=== PATIENT | female | born 1960 | race Caucasian/White ===

== ENCOUNTER → 2019-01-02 15:26 | Outpatient (CLI) | payer BC, SELFPAY ==
--- NOTE | 2019-01-02 | CA_ITS ---
APPROVED REPORT Left Lower Extremity Venous Study for DVT. 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 Color flow duplex demonstrates no evidence of SVT of the Small and Great Saphenous Vein. 6.0cm hypoechoic area seen left calf muscle, ? hematoma. Conclusion Color flow duplex demonstrates no evidence of DVT of the following left lower extremity Veins:. Color flow duplex demonstrates no evidence of SVT of the Small and Great Saphenous Vein. 6.0cm hypoechoic area seen left calf muscle, ? hematoma. Consider MRI for further evaluation Critical Notification Date: 01/02/2019 Time: 16:05 Physician Name: Dr Mullins Electronically signed by : Mark Lopez MD 01/02/2019 19:39:25
== END ==
PROVIDERS: PCP Family Medicine; Visit Provider Family Medicine
DX: M79.605 Pain in left leg (principal)
CPT/HCPCS: 93971

== ENCOUNTER → 2020-02-18 09:29 | Outpatient (CLI) | payer BC, SELFPAY ==
[2020-02-18 10:35] LABS: Basophils % 0.8 % (0.1-2.0); Eosinophils # 0.2 K/mm3 (0.0-0.4); Eosinophils % 3.6 % (0.1-12.0); Hematocrit 32.3 % (37.0-47.0); Hemoglobin 9.8 g/dL (12.2-16.2); Lymphocytes # 2.2 K/mm3 (0.7-4.5); Lymphocytes % 45.3 % (10-50); Mean Corpuscular HGB Conc 30.4 g/dL (31.8-35.4); Mean Corpuscular Hemoglobin 23.5 pg (27.0-31.2); Mean Corpuscular Volume 77.5 fl (81-99); Mean Platelet Volume 10.4 fl (7.4-10.4); Monocytes # 0.4 K/mm3 (0.1-1.0); Monocytes % 8.7 % (1.7-9.3); Neutrophils % 41.7 % (37.0-80.0); Platelet Count 223 K/mm3 (142-424); Red Blood Count 4.17 M/mm3 (4.20-5.40); Red Cell Distribution Width 17.3 % (11.5-17.5); White Blood Count 4.8 K/mm3 (4.8-10.8)
== END ==
PROVIDERS: Visit Provider Family Medicine
DX: D64.9 Anemia, unspecified (principal)
CPT/HCPCS: 36415; 85025

== ENCOUNTER 2020-11-27 11:46 | Outpatient (CLI) | payer BC, SELFPAY ==
[2020-11-27] VITALS (8 sets, daily range): BP systolic 105–119; BP diastolic 56–66; PULSE 61–71; RESP 16–20; TEMP 36.9–37.2; O2SAT 96–99
== END 2020-11-27 14:44 | disposition home or self-care (01) ==
PROVIDERS: PCP Family Medicine; Visit Provider Emergency Medicine
DX: U07.1 COVID-19 (principal)
CPT/HCPCS: 96365

== ENCOUNTER 2021-10-23 01:37 | Emergency (ER) | payer BC, SELFPAY ==
[2021-10-23 01:39] VITALS: BP 143/84; PULSE 102; RESP 16; TEMP 36.9; O2SAT 99; BMI 32.5
--- NOTE | 2021-10-23 01:52 | CT_ITS ---
PROCEDURE INFORMATION: Exam: CT Left Lower Extremity Without Contrast, Knee Exam date and time: 10/23/2021 1:53 AM Age: 60 years old Clinical indication: Swelling or effusion of joint; Prior surgery; Surgery date: 6+ months; Surgery type: Total knee replacment 2019; Additional info: Pain and unable to staighten sudden onset tonight PT denies any injury tonight TECHNIQUE: Imaging protocol: CT of the Left lower extremity without contrast was performed. Exam focused on the knee. Radiation optimization: All CT scans at this facility use at least one of these dose optimization techniques: automated exposure control; mA and/or kV adjustment per patient size (includes targeted exams where dose is matched to clinical indication); or iterative reconstruction. COMPARISON: No relevant prior studies available. FINDINGS: Limitations: Streak artifact - moderate. Bones/joints: No displaced fracture. Total knee arthroplasty. No definite hardware loosening. No dislocation. Large joint effusion. Soft tissues: Mild stranding within subcutaneous tissues. Vasculature: Atherosclerotic disease of visualized arteries. IMPRESSION: No displaced fracture. Joint effusion. If pain persists, consider MRI to evaluate for occult fracture/internal derangement.
--- NOTE | 2021-10-23 01:54 | PC.NURSE ---
Pt gone to RAD
--- NOTE | 2021-10-23 01:55 | PC.NURSE ---
PT AND FAMILY MADE AWARE OF EXPECTED WAIT TIMES. WARM BLANKET AND PAIN MEDICATIONS GIVEN FOR COMFORT. FAMILY AT BEDSIDE.
--- NOTE | 2021-10-23 02:05 | PC.NURSE ---
pt back from RAD
--- NOTE | 2021-10-23 02:36 | PC.NURSE ---
WARM BLANKET PROVIDED FOR COMFORT. PT REPORTS THAT PAIN HAS IMPROVED. PT UPDATED AND MADE AWARE THAT RADIOLOGY SCANS HAVE NOT BEEN READ. FAMILY REMAINS AT BEDSIDE.
--- NOTE | 2021-10-23 02:53 | HMH.EDLOEX ---
ED Disposition Clinical Impression: Knee effusion, left, Prolonged INR Left knee pain Qualifiers: Chronicity: acute Qualified Code(s): M25.562 - Pain in left knee Disposition: Home, Self-Care Condition on Discharge: Good Instructions: DI for Knee Effusion Additional Instructions: will adjust coumadin and have pt call ortho and pcp for follow up Referrals: Ivanna Mullins MD [Primary Care Provider] - - Critical Care Critical Care Time: No Attestation: On 10/23/21, the high probability of a clinically significant, sudden or life threatening deterioration of the following system(s) required my full and direct attention, intervention and personal management. The time I documented below is in addition to time spent performing reported procedures but includes the following listed in this critical care notation. Medical Decision Making - Medical Records Medical records reviewed: Yes: I reviewed the patient's medical records. - Rony Inquiry Pt receiving controlled substance: No Vital Signs: 10/23/21 01:39 Temperature 98.4 F Temperature Source Oral Pulse Rate [Right] 102 H Respiratory Rate 16 Blood Pressure [Right Arm] 143/84 H Blood Pressure Mean [Right Arm] 103 02 Sat by Pulse Oximetry 99 - Lab Data Lab results reviewed: Yes: I reviewed the patient's lab results. Lab Results 10/23/21 03:11: PT 40.8 H, INR 4.00 H 10/23/21 03:11: WBC 6.8, RBC 3.84 L, Hgb 8.7 L, Hct 29.3 L, MCV 76.4 L, MCH 22.7 L, MCHC 29.7 L, RDW 19.4 H, Plt Count 437 H, MPV 9.1, Neut % (Auto) 45.7, Lymph % (Auto) 43.1, [place] % (Auto) 7.1, Eos % (Auto) 2.6, Baso % (Auto) 1.6, Neut # (Auto) 3.1, Lymph # (Auto) 2.9, [place] # (Auto) 0.5, Eos # (Auto) 0.2, Baso # (Auto) 0.1 10/23/21 03:11: Sodium 135 L, Potassium 4.3, Chloride 106, Carbon Dioxide 25, Anion Gap 8.3, BUN 11, Creatinine 0.70, Estimated Creat Clear 83, Estimated GFR 85, Est GFR ( Amer) 103, Glucose 108 H, Calcium 8.7 Result diagrams: 10/23/21 03:11 10/23/21 03:11 Orders (Tests/Meds): ED MEDICATIONS Discontinued Medications Generic Name Dose Route Start Last Admin Trade Name Amy PRN Reason Stop Dose Admin Oxycodone/Acetaminophen 1 each 10/23/21 01:53 10/23/21 01:54 Oxycodone 5mg W/Apap 325mg Tablet PO 10/23/21 01:54 1 each ONCE ONE Administration - CT Data CT Scan: Other Time Received: 03:[address] Reviewed: Yes: I have viewed the radiologist's interpretation Preliminary Findings: Abnormal (effusion and warmth with dec rom ) - Physician Consults Physician Consulted: gayle Reason -: Pt condition Medical Decision Narrative: atraumatic lt knee pain and dec rom with effusion - with prolonged inr - possible spont bleed Lower Extremity Injury HPI - General Chief Complaint: Extremity Injury, Lower Stated Complaint: left knee replacement ,knee not moving Time Seen by Provider: 10/23/21 02:00 Mode of Arrival: Wheelchair Source of Information: Patient, Medical Record Limitations: No Limitations Description of Symptoms (Recalled from ER Triage Doc. by RN): pt states sat up down in chair for 10 mins then when to get out of chair and was unable to straighten lt knee. pt c/o lt knee pain,unable to bear weight, straighten,swelling noted. pt denies any trauma. - History of Present Illness HPI Narrative: hx of knee replacement and was getting out of chair and was unable to fully extend knee and has swelling - pt with pain at rest - no other c/o - pt on coumadin - chronic for dvt MD complaint: knee injury Onset (ago): hour(s) Injury: Left: knee Type of Injury: unknown Place: home Severity: moderate Associated symptoms: swelling, unable to bear weight Other symptoms: none - Related Data Home Medications Medication Instructions Recorded Confirmed Amitriptyline HCl [Elavil 25mg 25 mg PO DAILY 12/23/17 12/23/17 tablet] Diclofenac Sodium [Voltaren 100gm 100 gm TP DAILY 12/23/17 12/23/17 Topical Gel] Metoprolol Tartrate [Lo
[2021-10-23 03:24] LABS: Basophils # 0.1 K/mm3 (0-0.2); Basophils % 1.6 % (0.1-2.0); Eosinophils # 0.2 K/mm3 (0.0-0.4); Eosinophils % 2.6 % (0.1-12.0); Hemoglobin 8.7 g/dL (12.2-16.2); Lymphocytes # 2.9 K/mm3 (0.7-4.5); Lymphocytes % 43.1 % (10-50); Mean Corpuscular HGB Conc 29.7 g/dL (31.8-35.4); Mean Corpuscular Hemoglobin 22.7 pg (27.0-31.2); Mean Corpuscular Volume 76.4 fl (81-99); Mean Platelet Volume 9.1 fl (7.4-10.4); Monocytes # 0.5 K/mm3 (0.1-1.0); Monocytes % 7.1 % (1.7-9.3); Neutrophils # 3.1 K/mm3 (1.8-7.8); Neutrophils % 45.7 % (37.0-80.0); Platelet Count 437 K/mm3 (142-424); Red Blood Count 3.84 M/mm3 (4.20-5.40); Red Cell Distribution Width 19.4 % (11.5-17.5); White Blood Count 6.8 K/mm3 (4.8-10.8)
[2021-10-23 03:25] LABS: Chloride 106 mmol/L (98-107); Potassium 4.3 mmoL/L (3.5-5.1); Sodium 135 mmol/L (136-145)
[2021-10-23 03:28] LABS: Anion Gap 8.3 mEq/L (5-15); Blood Urea Nitrogen 11 mg/dl (7-17); Carbon Dioxide 25 mmol/L (22.0-30.0); Creatinine Clearance Estimated 83 mL/min (50-200); Estimated Glomerular Filt Rate 85 ml/min (>60); GFR (African American) 103 ML/MIN (>60); Glucose 108 mg/dl (74-100)
[2021-10-23 03:29] LABS: Calcium 8.7 mg/dl (8.4-10.2)
[2021-10-23 03:30] LABS: Prothrombin Time 40.8 seconds (10.1-12.5)
[2021-10-23 03:36] LABS: Hematocrit 29.3 % (37.0-47.0)
--- NOTE | 2021-10-23 03:47 | PC.NURSE ---
Waiting for a call back from Dr. Romero at [facility]
--- NOTE | 2021-10-23 03:48 | PC.NURSE ---
speaking with Dr. Romero
[2021-10-23 03:54] VITALS: BP 134/79; PULSE 78; RESP 16; TEMP 36.9; O2SAT 95
== END 2021-10-23 03:58 | disposition home or self-care (01) ==
PROVIDERS: Emergency Provider Emergency Medicine; PCP Family Medicine
DX: M25.462 Effusion, left knee (principal); M25.562 Pain in left knee; Z96.659 Presence of unspecified artificial knee joint; Z79.01 Long term (current) use of anticoagulants
CPT/HCPCS: 73700; 80048; 85025; 85610; 99284

== ENCOUNTER → 2022-02-18 16:00 | Outpatient (CLI) | payer BC, SELFPAY ==
[2022-02-18 17:53] LABS: Anion Gap 11.4 mEq/L (5-15); Blood Urea Nitrogen 12 mg/dl (7-17); Calcium 8.7 mg/dl (8.4-10.2); Carbon Dioxide 29 mmol/L (22.0-30.0); Chloride 101 mmol/L (98-107); Estimated Glomerular Filt Rate 85 ml/min (>60); GFR (African American) 103 ML/MIN (>60); Glucose 103 mg/dl (74-100); Potassium 4.4 mmoL/L (3.5-5.1); Sodium 137 mmol/L (136-145)
== END ==
PROVIDERS: PCP Family Medicine; Visit Provider Family Medicine
DX: M54.2 Cervicalgia (principal)
CPT/HCPCS: 36415; 80048

== ENCOUNTER → 2022-02-22 12:46 | Outpatient (CLI) | payer BC, SELFPAY ==
--- NOTE | 2022-02-22 12:53 | CT_ITS ---
FINAL REPORT TECHNIQUE: Axial images through the cervical spine was performed with and without contrast. Sagittal coronal reformatted images were obtained and reviewed. This study was performed with techniques to keep radiation doses as low as reasonably achievable (ALARA). Individualized dose reduction techniques using automated exposure control or adjustment of mA and/or kV according to the patient's size were employed. CLINICAL HISTORY: CERVICAL SPINE PAIN, numbness to the right thumb and pinky fingers , right side neck pain FINDINGS: No fracture is identified. There are moderate degenerative changes. There is no abnormal contrast enhancement on the postcontrast images. C2-3: Uncovertebral osteophytes are present. There is no significant canal stenosis or neural foraminal narrowing. C3-4: Uncovertebral osteophytes are present with mild right neural foraminal narrowing. C4-5: An annular bulge and uncovertebral osteophytes are present. There is moderate right neural foraminal narrowing. C5-6: Disc osteophyte complex is present. There is a central and left foraminal disc protrusion which indents the thecal sac. There is probable left C6 nerve root impingement. There is mild right and severe left neural foraminal narrowing. There is mild central canal stenosis with an AP diameter of the thecal sac of 9 mm. C6-7: Disc osteophyte complex is present with moderate right and severe left neural foraminal narrowing. There is mild central canal stenosis with an AP diameter of the thecal sac of 8 mm. C7-T1: Uncovertebral osteophytes are present moderate bilateral neural foraminal narrowing. IMPRESSION: Multilevel degenerative disc disease and spondylosis with mild central canal stenosis at C5-6 and C6-7. Central and left foraminal disc protrusion at C5-6 results in severe left neural foraminal narrowing and probable left C6 nerve root impingement. Reviewed, Interpreted and Dictated by Jayesh Steiner III, MD Transcribed by Ashley Man Authenticated and . [facility]
== END ==
PROVIDERS: PCP Family Medicine; Visit Provider Family Medicine
DX: M54.2 Cervicalgia (principal)
CPT/HCPCS: 72127; Q9967

== ENCOUNTER 2023-06-20 15:00 | Outpatient (RCR) | payer BC, SELFPAY | END 2023-06-20 16:00 | disposition home or self-care (01) | LOC: PT 15:00 | PROVIDERS: PCP Family Medicine; Visit Provider Family Medicine | DX: L08.9 Local infection of the skin and subcutaneous tissue, unspecified (principal); S31.104A Unspecified open wound of abdominal wall, left lower quadrant without penetration into peritoneal cavity, initial encounter | CPT/HCPCS: 97163; 97164; 97597 ==

== ENCOUNTER 2023-07-09 00:05 | Emergency (ER) | payer BC, SELFPAY ==
[2023-07-09] VITALS (7 sets, daily range): BP systolic 155–177; BP diastolic 56–84; PULSE 73–84; RESP 16–19; TEMP 36.7–36.8; O2SAT 96–99; BMI 35.6
--- NOTE | 2023-07-09 00:14 | XR_ITS ---
PROCEDURE INFORMATION: Exam: XR Chest Exam date and time: 07/09/2023 12:35 AM Age: 62 years old Clinical indication: Shortness of breath; Additional info: Shortness of air TECHNIQUE: Imaging protocol: Radiologic exam of the chest. Views: 1 view. COMPARISON: CT CERVICAL SPINE WO/W CON 02/22/2022 1:15 PM FINDINGS: Lungs: Unremarkable. No consolidation. Pleural spaces: Unremarkable. No pleural effusion. No pneumothorax. Heart/Mediastinum: Unremarkable. No cardiomegaly. Bones/joints: Unremarkable. IMPRESSION: No acute findings.
[2023-07-09 00:26] LABS: Basophils # 0.1 K/mm3 (0-0.2); Basophils % 0.9 % (0.1-2.0); Eosinophils # 0.1 K/mm3 (0.0-0.4); Hematocrit 38.7 % (37.0-47.0); Lymphocytes # 2.4 K/mm3 (0.7-4.5); Lymphocytes % 36.9 % (10-50); Mean Corpuscular HGB Conc 31.1 g/dL (31.8-35.4); Mean Corpuscular Hemoglobin 31.7 pg (27.0-31.2); Mean Platelet Volume 9.4 fl (7.4-10.4); Monocytes # 0.3 K/mm3 (0.1-1.0); Monocytes % 5.1 % (1.7-9.3); Neutrophils # 3.6 K/mm3 (1.8-7.8); Neutrophils % 55.1 % (37.0-80.0); Platelet Count 259 K/mm3 (142-424); Red Cell Distribution Width 14.7 % (11.5-17.5); White Blood Count 6.5 K/mm3 (4.8-10.8)
[2023-07-09 00:27] LABS: Chloride 104 mmol/L (98-107); Sodium 138 mmol/L (136-145)
[2023-07-09 00:29] LABS: Blood Urea Nitrogen 16 mg/dl (7-17); Creatinine Clearance Estimated 88 mL/min (50-200); Estimated Glomerular Filt Rate 101 ml/min (>60); GFR (African American) 122 ML/MIN (>60)
[2023-07-09 00:30] LABS: Alanine Aminotransferase 55 U/L (12-78); Albumin Level 3.8 g/dl (3.5-5.0); Albumin/Globulin Ratio 1.2 (1.1-1.8); Alkaline Phosphatase 108 U/L (38-126); Aspartate Amino Transferase 52 U/L (14-36); Bilirubin,Total 0.3 mg/dl (0.2-1.3); Calcium 9.1 mg/dl (8.4-10.2); Carbon Dioxide 32 mmol/L (22.0-30.0); Globulin 3.2 g/dL (1.3-3.2); Glucose 105 mg/dl (74-100)
[2023-07-09 00:31] LABS: INR 3.13 (0.9-1.1); Prothrombin Time 31.4 seconds (10.1-12.5)
--- NOTE | 2023-07-09 00:37 | CT_ITS ---
PROCEDURE INFORMATION: Exam: CT Thoracic Spine Without Contrast Exam date and time: 07/09/2023 1:03 AM Age: 62 years old Clinical indication: Injury or trauma; Fall; Blunt trauma (contusions or hematomas); Additional info: Fall, landed directly on buttocks, t/l/s spine breezy TECHNIQUE: Imaging protocol: Computed tomography of the thoracic spine without contrast. Radiation optimization: All CT scans at this facility use at least one of these dose optimization techniques: automated exposure control; mA and/or kV adjustment per patient size (includes targeted exams where dose is matched to clinical indication); or iterative reconstruction. COMPARISON: CT CERVICAL SPINE WO CON 07/09/2023 12:59 AM FINDINGS: Bones/joints: There is no acute fracture or dislocation. Multilevel degenerative changes noted throughout the thoracic spine. Mild kyphosis of the midthoracic spine is suggested. Overall vertebral body heights are maintained. Soft tissues: Unremarkable. Vasculature: Aortic atherosclerosis noted. IMPRESSION: No acute osseous abnormality
--- NOTE | 2023-07-09 00:37 | CT_ITS ---
PROCEDURE INFORMATION: Exam: CT Cervical Spine Without Contrast Exam date and time: 07/09/2023 12:59 AM Age: 62 years old Clinical indication: Injury or trauma; Fall; Blunt trauma; Additional info: Fall, struck head, on warfarin TECHNIQUE: Imaging protocol: Computed tomography of the cervical spine without contrast. Radiation optimization: All CT scans at this facility use at least one of these dose optimization techniques: automated exposure control; mA and/or kV adjustment per patient size (includes targeted exams where dose is matched to clinical indication); or iterative reconstruction. COMPARISON: CT CERVICAL SPINE WO/W CON 02/22/2022 1:15 PM FINDINGS: Bones/joints: No cervical fracture. Facets are normally aligned. Advanced multilevel degenerative facet arthropathy. Marked degenerative disc disease at C5-C6 and C6-C7. Mild degenerative anterolisthesis of C5 on C6 measuring approximately 2 mm. No significant central canal stenosis. Lungs: No acute findings in the visualized lung apices. Soft tissues: No acute findings. IMPRESSION: 1. No acute findings in the cervical spine. 2. Multilevel advanced degenerative changes as described.
--- NOTE | 2023-07-09 00:37 | CT_ITS ---
PROCEDURE INFORMATION: Exam: CT Pelvis Without Contrast; Skeletal Exam date and time: 07/09/2023 1:08 AM Age: 62 years old Clinical indication: Injury or trauma; Fall; Blunt trauma (contusions or hematomas); Does not apply; Sacrum and coccyx; Additional info: Fall, landed directly on buttocks, t/l/s spine breezy TECHNIQUE: Imaging protocol: Computed tomography of the pelvis without contrast. Exam focused on the skeleton. Radiation optimization: All CT scans at this facility use at least one of these dose optimization techniques: automated exposure control; mA and/or kV adjustment per patient size (includes targeted exams where dose is matched to clinical indication); or iterative reconstruction. COMPARISON: CT LUMBAR SPINE WO CON 07/09/2023 1:05 AM FINDINGS: Intraperitoneal space: Pelvic soft tissues demonstrate no significant free fluid. Moderate fecal material noted. Urinary bladder is unremarkable. Reproductive pelvic organs not visualized. Correlate clinically for history of hysterectomy. Bones/joints: No acute fracture. Bilateral sacroiliac joints are symmetric and intact. Bilateral hip joints are intact. Pubic symphysis is grossly unremarkable. Visualized sacrum and coccyx are do not demonstrate any acute bony injury. Please see patient's CT lumbar spine report for additional information. Soft tissues: Fat containing right inguinal hernia noted. IMPRESSION: 1. Intact bony pelvis with no acute fracture 2. Fat containing right inguinal hernia noted 3. Additional nonacute findings, noted above
--- NOTE | 2023-07-09 00:37 | CT_ITS ---
PROCEDURE INFORMATION: Exam: CT Lumbar Spine Without Contrast Exam date and time: 07/09/2023 1:05 AM Age: 62 years old Clinical indication: Injury or trauma; Fall; Blunt trauma (contusions or hematomas); Prior surgery; Surgery date: 6+ months; Surgery type: Fusion; Additional info: Fall, landed directly on buttocks, t/l/s spine breezy TECHNIQUE: Imaging protocol: Computed tomography of the lumbar spine without contrast. Radiation optimization: All CT scans at this facility use at least one of these dose optimization techniques: automated exposure control; mA and/or kV adjustment per patient size (includes targeted exams where dose is matched to clinical indication); or iterative reconstruction. COMPARISON: CT THORACIC SPINE WO CON 07/09/2023 1:03 AM FINDINGS: Bones/joints: Mild posterior subluxation of the L1 on L2 noted. Degenerative disc disease noted all levels. Bilateral neural foraminal narrowing noted at all levels of the lumbar spine. Central canal stenosis noted at L3-L4. . Postsurgical changes noted from fusion hardware placement of L4 and L5 with bilateral pedicle screws and vertical rods. Disc spacer noted at L4-L5. No acute fracture. Multilevel facet arthropathy noted. Vasculature: Note made of IVC filter in place. Atherosclerosis noted in the aorta. Soft tissues: Postsurgical changes noted.. IMPRESSION: 1. No acute fracture 2. Mild posterior subluxation of L1 on L2. Most likely degenerative. 3. Postsurgical changes from posterior fusion at L4 and L5. 4. Multilevel degenerative disc disease with multiple levels of neural foraminal narrowing. Central canal stenosis at L3-L4
--- NOTE | 2023-07-09 00:37 | CT_ITS ---
PROCEDURE INFORMATION: Exam: CT Head Without Contrast Exam date and time: 07/09/2023 1:00 AM Age: 62 years old Clinical indication: Injury or trauma; Fall; Blunt trauma (contusions or hematomas); Additional info: Fall, struck head, on warfarin TECHNIQUE: Imaging protocol: Computed tomography of the head without contrast. Radiation optimization: All CT scans at this facility use at least one of these dose optimization techniques: automated exposure control; mA and/or kV adjustment per patient size (includes targeted exams where dose is matched to clinical indication); or iterative reconstruction. COMPARISON: CT CERVICAL SPINE WO CON 07/09/2023 12:59 AM FINDINGS: Brain: Age related atrophic changes in the brain. No mass effect or midline shift. No intracranial hemorrhage. No intracranial edema. No evidence of acute territorial ischemia. No significant white matter disease. Cerebral ventricles: No ventriculomegaly. Paranasal sinuses: No acute findings. No fluid levels. Mastoid air cells: No significant mastoid effusion. Bones/joints: No acute fracture. Soft tissues: No acute findings. IMPRESSION: No acute intracranial findings.
[2023-07-09 00:40] LABS: NT Pro Brain Natriuretic Pep. 279 pg/mL (0-125)
[2023-07-09 00:43] LABS: Troponin I < 0.01 ng/ml (0.00-0.034)
--- NOTE | 2023-07-09 00:49 | ECG_ITS ---
APPROVED REPORT Exam: Resting ECG HR:75 bpm ECG Measurements Heart Rate 75 AXES WV 160 P 54 QRSd 95 QRS 32 QT 376 T 30 QTc 405 Conclusion SINUS RHYTHM Nonspecific T wave inversion lead III Electronically signed by : PAM NICOLE, 07/09/2023 02:58:22
--- NOTE | 2023-07-09 01:25 | PC.NURSE ---
PT UP TO BR VIA TWO STAFF MEMBERS. VOIDED EASILY. BLADDER SCAN 5ML PER JOSEFINA HURD
[2023-07-09 01:27] LABS: Microscopic, Urine URINE MICROSCOPIC (MICROSCOPIC)
[2023-07-09 01:34] LABS: Appearance,Urine CLEAR (Clear); Bilirubin,Urine Negative (Negative); Blood, Urine Negative (Negative); Color,Urine YELLOW (Yellow); Glucose,Urine (UA) Negative (Negative); Ketones,Urine Negative (Negative); Leukocyte Esterase,Urine 1+ (Negative); Nitrate,Urine Negative (Negative); Protein,Urine Negative (Negative); Specific Gravity, Urine 1.015 (1.005-1.030); Urobilinogen,Urine 0.2 EU/dl (0.2)
[2023-07-09 01:42] LABS: Bacteria,Urine Trace /lpf; Squamous Epithelial Cell,Urine Occasional #/hpf (0-5)
--- NOTE | 2023-07-09 01:58 | [facility].EDCP ---
Discharge Plan Disposition Patient Disposition: Home, Self-Care Prescriptions Prescriptions: New prednisone 20 mg tablet 40 mg PO DAILY 5 Days Qty: 10 0RF hydrochlorothiazide 25 mg tablet 25 mg PO DAILY Qty: 30 1RF nitrofurantoin monohyd/m-cryst [Macrobid] 100 mg capsule 100 mg PO BID 5 Days Qty: 10 0RF Rx Instructions: must administer with a meal/food No Action folic acid 1 mg tablet 1 mg PO DAILY gabapentin 300 mg capsule 300 mg PO Q8H meloxicam 7.5 mg tablet 7.5 mg PO DAILY duloxetine 60 mg capsule,delayed release(DR/EC) 60 mg PO BID cyclobenzaprine 10 mg tablet 10 mg PO HS leflunomide 20 mg tablet 20 mg PO DAILY vitamin [id number] B1 1,000-100 mg/mL solution See Rx Instructions IM .COMPLEX Rx Instructions: intramuscularly 2X A MONTH; Prolia 60 mg/mL syringe 60 mg SQ [id number] cholecalciferol (vitamin D3) 125 mcg (5,000 unit) capsule 125 mcg PO DAILY acyclovir 400 mg tablet 400 mg PO BID loperamide 2 mg capsule 2 mg PO Q6H PRN (Reason: Diarrhea) calcium carbonate-vitamin D3 [Calcium 600 with Vitamin D3] 600 mg-12.5 mcg (500 unit) capsule See Rx Instructions PO .COMPLEX Rx Instructions: I TAB ,DAILY orally; amitriptyline 25 MG tablet 25 mg PO DAILY oxycodone 5 MG capsule 7.5 mg PO HS rosuvastatin [Crestor] 20 MG tablet 20 mg PO DAILY metoprolol tartrate 25 MG tablet 25 mg PO BID diclofenac sodium [Voltaren] 100 GM gel 100 g topical DAILY omeprazole 20 MG tablet,delayed release (DR/EC) 20 mg PO DAILY pramipexole 1 mg tablet 0.5 mg PO HS warfarin [Coumadin] 10 mg tablet 9 mg PO DAILY Patient Comments: ALTENATE 7MG AND 8MG Referrals Follow up/Referrals: Ivanna Mullins MD [Primary Care Provider] - See instructions Activity Restrictions/Add. Instructions Additional Instructions/Restrictions: Follow-up with your visual merchandising associate and your spinal surgeon regarding this visit to the emergency department. Tell the spinal surgeon that you do have canal narrowing at L3, L4 just above your previous fusion. If you have loss of function of your bowel or bladder, loss of function of your legs, numbness in your groin or around the rectum, or any other concerns, return to the emergency department for further evaluation. Talk to your visual merchandising associate about your lower extremity swelling and shortness of breath. A water pill has been sent to the pharmacy to help with the symptoms. Clinical Impressions Clinical Impression: Swelling of both lower extremities, Shortness of breath, Back pain, CHI (closed head injury), UTI (urinary tract infection) Discharge ED Provider: Michael Ann General Chief Complaint: Shortness of Breath/Dyspnea Stated Complaint: sob Time Seen by Provider: 07/09/23 00:09 Mode of Arrival: EMS Source of Information: Patient Limitations: No Limitations Description of Symptoms (Recalled from ER Triage Doc. by RN): 62 yo female presents with acute onset of soa that began yesterday throughout the day. She also noted a decrease in UOP, and bilateral lower extremity edema. Patient denies any chest pain, nausea, vomiting. Recently noted her liver enzymes to be abnormal. Denies heart history. H/O HTN reported. 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 Patient states that a few days prior to this visit she tripped while she was walking outside, fell and landed directly on her buttocks. She did strike her head at that time. No loss of conscious. Has not been seen since that time for further evaluation or workup. Patient states that she has had swelling in her bilateral lower extremities that is been worse than usual and shortness of breath with exertion. Denies chest pain, nausea, vomiting, diaphoresis, fevers or chills. Patient states that she has intermittent difficulty with bowel bladder, notably stating she has the urge to urinate and defecate, sometimes is unable to make it to the bathroom in time. Since the fall, patient states that she still has a surge, but does have sensation decreased intermittently on the lateral aspects of her bilateral legs. Denies groin or saddle anesthesia, incontinence, or motor deficits. Patient states that her lower back pain since the fall has been worse and it feels like I am sitting on a ball, when she is sitting down. Came in for further evaluation given complicated medical history. Please note that above description of symptoms, in this electronic medical record under categorization of recalled from ER triage doctor by RN are reflective of an initial nursing assessment, however, is not reflective of my full history and physical exam that was personally taken and clarified. Consequentially, this preceding description of symptoms, which may include the patient's categorized chief complaint in the EMR, do not reflect my personal clinical impression, and the ultimate description of history of present illness and patient stated complaints should be deferred to this section of the note. Unless stated otherwise or congruent with this section of the note, additional signs, symptoms, or incongruence should be interpreted as inaccurate with my clinical impression. Related Data Home Medications Medication Instructions Recorded Confirmed amitriptyline 25 mg tablet 25 mg PO DAILY unknown 12/23/17 07/09/23 diclofenac sodium 1 % topical gel 100 g topical DAILY unknown 12/23/17 07/09/23 (Voltaren) metoprolol tartrate 25 mg tablet 25 mg PO BID High blood pressure 12/23/17 07/09/23 omeprazole 20 mg tablet,delayed 20 mg PO DAILY GERD 12/23/17 07/09/23 release oxycodone 5 mg capsule 7.5 mg PO HS Pain 12/23/17 07/09/23 rosuvastatin 20 mg tablet (Crestor) 20 mg PO DAILY Cholesterol 12/23/17 07/09/23 acyclovir 400 mg tablet 400 mg PO BID 06/26/23 07/09/23 calcium carbonate 600 mg-vitamin See Rx Instructions PO .COMPLEX 06/26/23 07/09/23 D3 12.5 mcg (500 unit) capsule (Calcium 600 with Vitamin D3) cholecalciferol (vitamin D3) 125 125 mcg PO DAILY 06/26/23 07/09/23 mcg (5,000 unit) capsule cyclobenzaprine 10 mg tablet 10 mg PO HS 06/26/23 07/09/23 denosumab 60 mg/mL subcutaneous 60 mg SQ [id number] 06/26/23 07/09/23 syringe (Prolia) duloxetine 60 mg capsule,delayed 60 mg PO BID 06/26/23 07/09/23 release folic acid 1 mg tablet 1 mg PO DAILY 06/26/23 07/09/23 gabapentin 300 mg capsule 300 mg PO Q8H 06/26/23 07/09/23 leflunomide 20 mg tablet 20 mg PO DAILY 06/26/23 07/09/23 loperamide 2 mg capsule 2 mg PO Q6H PRN Diarrhea 06/26/23 07/09/23 meloxicam 7.5 mg tablet 7.5 mg PO DAILY 06/26/23 07/09/23 pramipexole 1 mg tablet 0.5 mg PO HS unknown 06/26/23 07/09/23 vitamin [id number] B1 1,000 See Rx Instructions IM .COMPLEX 06/26/23 07/09/23 mcg-100 mg/mL injection solution warfarin 10 mg tablet (Coumadin) 9 mg PO DAILY Blood thinner 06/26/23 07/09/23 Previous Rx's Medication Instructions Recorded hydrochlorothiazide 25 mg tablet 25 mg PO DAILY #30 tabs 07/09/23 nitrofurantoin 100 mg PO BID 5 days #10 caps 07/09/23 monohydrate/macrocrystals 100 mg capsule (Macrobid) prednisone 20 mg tablet 40 mg (2 x 20 mg) PO DAILY 5 days 07/09/23 #10 tabs Allergies Allergy/AdvReac Type Severity Reaction Status Date / Time Aspirin Allergy Unknown Uncoded 04/11/17 14:29 CLASS: 12:20 - SKELETAL Allergy Unknown Uncoded 04/11/17 14:29 MUSCLE RELAXANTS Clindamycin Allergy Unknown Uncoded 04/11/17 14:29 DEHIST Allergy Unknown Uncoded 04/11/17 14:29 From ENTEX LA Allergy Unknown Uncoded 04/11/17 14:29 From HYCODAN Allergy Unknown Uncoded 04/11/17 14:29 From LINCOCIN Allergy Unknown Uncoded 04/11/17 14:29 From LIPITOR Allergy Unknown Uncoded 04/11/17 14:29 From LOVENOX Allergy Unknown Uncoded 04/11/17 14:29 From PARAFON FORTE DSC Allergy Unknown Uncoded 04/11/17 14:29 ILOSONE Allergy Unknown Uncoded 04/11/17 14:29 Macrolide/Antibacterial Allergy Unknown Uncoded 04/11/17 14:29 Methocarbamol Allergy Unknown Uncoded 04/11/17 14:29 MORPHINE Allergy Unknown Uncoded 04/11/17 14:29 Naloxone Allergy Unknown Uncoded 04/11/17 14:29 Opioid Agonist/Antagonist Allergy Unknown Uncoded 04/11/17 14:29 Penicillin Allergy Unknown Uncoded 04/11/17 14:29 Pentazocine Allergy Unknown Uncoded 04/11/17 14:29 Quinolone Allergy Unknown Uncoded 04/11/17 14:29 [facility] Disclaimer: The information contained in this section may have been updated after the patient was seen, as this information can be updated by other users. Medical History (Updated 07/09/23 @ 02:40 by Michael Ann MD) History of DVT (deep vein thrombosis) Hyperlipidemia Fibromyalgia Surgical History (Updated 06/26/23 @ 11:35 by Nancy Curiel) History of Hx of cholecystectomy H/O: hysterectomy Family History (Updated 06/26/23 @ 11:17 by Nancy Curiel) Other Coronary artery disease Diabetes Heart attack Social History (Updated 06/26/23 @ 11:29 by Nancy Curiel) Smoking Status: Never smoker alcohol intake: never substance use type: denies use current occupational status: retired Travel in the last 8 weeks: None household members: significant other housing: house marital status: ROS Obtained: Yes All systems reviewed & no additional complaints except as documented Physical Exam General General appearance: alert Head Head exam: atraumatic and normocephalic Neck Neck exam: Present normal inspection and trachea midline Chest Chest inspection: Present normal inspection and symmetric chest wall rise Respiratory Respiratory exam: Present normal lung sounds bilaterally; Absent respiratory distress, wheezes, stridor, accessory muscle use or prolonged expiratory phase Cardiovascular Cardiovascular exam: Present regular rate, normal rhythm and systolic murmur Abdominal Exam Abdominal exam: Present soft; Absent distention, tenderness or guarding Extremities Exam Extremities exam: Present edema (1+ nonpitting lower extremity edema) Back Exam Back exam: Present tenderness (No outward signs of injury or deformity.) and vertebral tenderness Neurological Exam Neurological exam: Present alert, oriented X3, CN II-XII intact, normal gait and reflexes normal; Absent motor sensory deficit Skin Skin exam: Present warm and dry; Absent cyanosis, diaphoresis or pallor HEART Score HEART Score HEART Score assessment performed?: Yes History (anamnesis): Moderately suspicious ECG: Normal Age: 45-65 years Risk factors: 1-2 risk factors Troponin: </= normal limit HEART Score: 3 Critical Care Critical Care Time Critical Care Time: No Medical Decision Making Medical Records Medical records reviewed: Yes I reviewed the patient's medical records. Rony Inquiry Pt receiving controlled substance: No Rony was queried for this patient: No Vital Signs Vital Signs: 07/09/23 00:09 07/09/23 00:17 07/09/23 00:31 Temperature 98.0 F Temperature Source Oral Pulse Rate 75 76 Pulse Rate [Right Brachial] 82 Respiratory Rate 19 Blood Pressure 177/84 H Blood Pressure [Right Arm] 155/56 H Blood Pressure Mean 104 Blood Pressure Mean [Right Arm] 89 Blood Pressure Source [Right Arm] Automatic Cuff Blood Pressure Position [Right Arm] Sitting 02 Sat by Pulse Oximetry 96 99 97 Oxygen Delivery Method Room Air 07/09/23 00:45 07/09/23 01:26 07/09/23 01:30 Temperature Temperature Source Pulse Rate 73 84 84 Pulse Rate [Right Brachial] Respiratory Rate Blood Pressure 171/83 H 162/73 H Blood Pressure [Right Arm] Blood Pressure Mean 106 102 Blood Pressure Mean [Right Arm] Blood Pressure Source [Right Arm] Blood Pressure Position [Right Arm] 02 Sat by Pulse Oximetry 97 98 96 Oxygen Delivery Method Lab Data Labs: Lab Results 07/09/23 00:15: WBC 6.5, RBC 3.80 L, Hgb 12.0 L, Hct 38.7, MCV 102.0 H, MCH 31.7 H, MCHC 31.1 L, RDW 14.7, Plt Count 259, MPV 9.4, Neut % (Auto) 55.1, Lymph % (Auto) 36.9, [place] % (Auto) 5.1, Eos % (Auto) 2.0, Baso % (Auto) 0.9, Neut # (Auto) 3.6, Lymph # (Auto) 2.4, [place] # (Auto) 0.3, Eos # (Auto) 0.1, Baso # (Auto) 0.1, PT 31.4 H, INR 3.13 H, Sodium 138, Potassium 4.0, Chloride 104, Carbon Dioxide 32 H, Anion Gap 6.0, BUN 16, Creatinine 0.60, Estimated Creat Clear 88, Estimated GFR 101, Est GFR ( Amer) 122, Glucose 105 H, Calcium 9.1, Total Bilirubin 0.3, AST 52 H, ALT 55, Alkaline Phosphatase 108, Troponin I < 0.01, NT-Pro-B Natriuret Pep 279 H, Total Protein 7.0, Albumin 3.8, Globulin 3.2, Albumin/Globulin Ratio 1.2 07/09/23 01:24: Urine Color Yellow, Urine Appearance Clear, Urine pH 8.0, Ur Specific [place] 1.015, Urine Protein Negative, Urine Glucose (UA) Negative, Urine Ketones Negative, Urine Blood Negative, Urine Nitrate Negative, Urine Bilirubin Negative, Urine Urobilinogen 0.2, Ur Leukocyte Esterase 1+ A, Urine RBC None, Urine WBC 5-10, Ur Squamous Epith Cells Occasional, Urine Bacteria Trace 07/09/23 00:15 07/09/23 00:15 Response Orders (Tests/Meds): ED MEDICATIONS Generic Name Dose Route Start Last Admin Trade Name Freq PRN Reason Stop Dose Admin Dexamethasone Sodium Phosphate 10 mg 07/09/23 02:32 Dexamethasone 4mg/Ml 1ml Vial IV 07/09/23 02:33 ONCE ONE Nitrofurantoin Macrocrystals 100 mg 07/09/23 02:32 Nitrofurantoin 100mg Capsule PO 07/09/23 02:33 ONCE ONE ORDERS Category Date Time Status CT bony pelvis Stat Cat Scan 07/09/23 00:[address] cervical spine wo con Stat Cat Scan 07/09/23 00:[address] head/brain wo con Stat Cat Scan 07/09/23 00:[address] lumbar spine wo con Stat Cat Scan 07/09/23 00:[address] thoracic spine wo con Stat Cat Scan 07/09/23 00:37 Completed Chest XR -- portable [XR chest portable] Stat Exams 07/09/23 00:14 Completed Brain Natriuretic Peptide Stat Lab 07/09/23 00:15 Completed Complete Blood Count Auto Diff Stat Lab 07/09/23 00:15 Completed Comprehensive Metabolic Panel Stat Lab 07/09/23 00:15 Completed PT INR [Prothrombin Time INR] Stat Lab 07/09/23 00:15 Completed Troponin I Q3H Lab 07/09/23 03:15 Ordered Troponin I Q3H Lab 07/09/23 06:15 Ordered Troponin I Stat Lab 07/09/23 00:15 Completed UA [Urinalysis and Microscopic] Stat Lab 07/09/23 01:24 Completed Urine Culture Stat Micro 07/09/23 01:24 Received MDM Narrative Medical Decision Narrative: The 62-year-old female with history of hypertension, hyperlipidemia, 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 Patient states that a few days prior to this visit she tripped while she was walking outside, fell and landed directly on her buttocks. She did strike her head at that time. No loss of conscious. Has not been seen since that time for further evaluation or workup. Patient states that she has had swelling in her bilateral lower extremities that is been worse than usual and shortness of breath with exertion. Denies chest pain, nausea, vomiting, diaphoresis, fevers or chills. Patient states that she has intermittent difficulty with bowel bladder, notably stating she has the urge to urinate and defecate, sometimes is unable to make it to the bathroom in time. Since the fall, patient states that she still has a surge, but does have sensation decreased intermittently on the lateral aspects of her bilateral legs. Denies groin or saddle anesthesia, incontinence, or motor deficits. Patient states that her lower back pain since the fall has been worse and it feels like I am sitting on a ball, when she is sitting down. Came in for further evaluation given complicated medical history. It should be noted that patient has chronic neck and back pain, but is also on warfarin and has true underlying pathology which is complicating care. History was obtained via conversation with patient and . On arrival, patient hemodynamically stable, alert, oriented x4, appropriate, GCS 15, moving all extremities spontaneously, pupils equal and reactive to light. Full physical exam performed and significant for neurologically intact including cranial nerves, cerebellar, motor and sensory nerves. Reflexes also intact lower extremities, right lower extremity reflexes are more brisk as compared to the left. No saddle anesthesia. 1+ nonpitting lower extremity edema bilaterally. Cardiac exam with loud, 3 out of 6 blowing murmur right upper sternal border. Cottle throughout the precordium, but loudest in right upper sternal border. Lungs are clear to auscultation. Differential includes CHF, CAD, ACS, [place], pneumonia, bronchitis, intracranial bleed, cervical spine, thoracic spine, lumbar spine injury, pelvic fracture, cauda equina, conus medullaris, spinal stenosis, neurogenic claudication, among others. Workup independently interpreted and significant for no leukocytosis. INR 3.13. Nonactionable chemistry. Troponin negative, BNP only mildly elevated at 279. Patient's UA with leukocyte Estrace, bacteria. Chest x-ray without acute cardiopulmonary airspace disease. CT head without acute hemorrhage. CT C, T, L-spine without acute fracture or bony abnormality. L4-L5 fusion appears normal with intact hardware. Patient does have neighboring disc disease of L3-L4 which is producing some spinal stenosis at that level.patient is aware of this. See radiology read for full review of final results. Independent interpretation of EKG shows ventricular rate 75 beats a minute no ST or T wave changes concerning for acute ischemia. [place], QRS, QT intervals within normal limits. [place] normal. Heart score 3. MRI of the spine was considered, but deemed unnecessary. Less likely to be cauda equina versus conus medullaris due to patient with no motor deficits on my exam, ambulating without difficulty, urinating and voiding without difficulty and spontaneously, postvoid residual only 5 mL. On reevaluation, patient resting comfortably in bed. She was given 10 mg Decadron IV and Macrobid for neurogenic claudication and UTI. Extensive conversation was had with patient and . Patient has follow-up with her neurosurgeon closely, able to schedule another follow-up visit for him to evaluate her imaging here at [facility]. A disc will be provided. It was recommended that she see him for further imaging including MRI, she voiced her understanding. Given patient presentation, workup, history, this most likely represents neurogenic claudication in the setting of spinal stenosis. Based on her shortness of breath and lower extremity swelling in the setting of right upper sternal border murmur, It was also recommended that she follow-up with visual merchandising associate, she has a visual merchandising associate of choice in mind. Because patient at baseline without signs or symptoms of clinical decompensation, deemed appropriate for discharge. Results were relayed to patient who voiced understanding and were agreeable to outpatient management and follow up. I discussed my clinical impression with patient and answered all questions. At this time, the evidence for any other entities in the differential is insufficient to warrant any further testing or ED observation. This was explained as well. Advisory was given that persistent or worsening symptoms require further evaluation. I confirmed the understanding of this discussion.
[2023-07-09] MEDS: NITROFURANTOIN 100MG CAPSULE 100 MG PO (02:58)
[2023-07-09] MEDS: DEXAMETHASONE 4MG/ML 1ML VIAL 10 MG IV (03:01)
--- NOTE | 2023-07-11 11:05 | PC.NURSE ---
reviewed urine culture with , pt dc with macrobid, NTD
== END 2023-07-09 03:04 | disposition home or self-care (01) ==
PROVIDERS: Emergency Provider Emergency Medicine; PCP Family Medicine
DX: S09.8XXA Other specified injuries of head, initial encounter (principal); R06.02 Shortness of breath; R60.9 Edema, unspecified; N39.0 Urinary tract infection, site not specified; W01.0XXA Fall on same level from slipping, tripping and stumbling without subsequent striking against object, initial encounter; M54.50 Low back pain, unspecified; I10 Essential (primary) hypertension; E78.5 Hyperlipidemia, unspecified; Z86.711 Personal history of pulmonary embolism; Z79.01 Long term (current) use of anticoagulants; M79.7 Fibromyalgia; M50.20 Other cervical disc displacement, unspecified cervical region
CPT/HCPCS: 70450; 71045; 72125; 72128; 72131; 72192; 80053; 81001; 83880; 84484; 85025; 85610; 87086; 93005; 96374; 99285

== ENCOUNTER 2023-08-03 10:59 | Emergency (ER) | payer BC, SELFPAY ==
[2023-08-03 11:00] VITALS: BP 143/73; PULSE 74; RESP 15; TEMP 37.1; O2SAT 95; BMI 34.7
--- NOTE | 2023-08-03 11:02 | CT_ITS ---
FINAL REPORT CLINICAL HISTORY: fall, head trauma, on coumadin COMPARISON: 07/09/2023 FINDINGS: Axial images of the head were obtained without contrast. Coronal and sagittal reformatted images were also obtained.This study was performed with techniques to keep radiation doses as low as reasonably achievable (ALARA). Individualized dose reduction techniques using automated exposure control or adjustment of mA and/or kV according to the patient's size were employed. There is no evidence of intracranial hemorrhage or mass. The ventricular size is within normal limits. There is no evidence of shift of the midline structures. No abnormal extra axial fluid collection is identified. No skull abnormality is seen on the bone window images. IMPRESSION: No acute intracranial abnormality. Reviewed, Interpreted and Dictated by Jayesh Steiner III, MD Transcribed by Rosalba Lucia Authenticated and [facility]
--- NOTE | 2023-08-03 11:02 | CT_ITS ---
FINAL REPORT CLINICAL HISTORY: fall, head trauma, on coumadin COMPARISON: 07/09/2023 FINDINGS: Axial CT images of the cervical spine were obtained without contrast. Sagittal and coronal reformatted images were also obtained. This study was performed with techniques to keep radiation doses as low as reasonably achievable (ALARA). Individualized dose reduction techniques using automated exposure control or adjustment of mA and/or kV according to the patient's size were employed. There is no evidence of fracture or dislocation. Moderate and severe degenerative change is present. There is mild anterolisthesis of C3 on C4, C4 on C5, and C5 on C6. There is endplate sclerosis present at the C5-6 and C6-7 levels. Multilevel neural foraminal narrowing is present. There is no evidence of canal stenosis. No paraspinous soft tissue abnormality is seen. Limited images of the upper thorax are unremarkable. Overall, the exam is stable when compared to the prior CT of 07/09/2023, with no acute bony abnormality identified. IMPRESSION: No fracture or acute bony abnormality identified. Degenerative changes as described above. Reviewed, Interpreted and Dictated by Jayesh Steiner III, MD Transcribed by Rosalba Lucia Authenticated and [facility]
--- NOTE | 2023-08-03 11:15 | HMH.EDGENADL ---
Discharge Plan Disposition Patient Disposition: Home, Self-Care Prescriptions Prescriptions: No Action folic acid 1 mg tablet 1 mg PO DAILY gabapentin 300 mg capsule 300 mg PO Q8H meloxicam 7.5 mg tablet 7.5 mg PO DAILY duloxetine 60 mg capsule,delayed release(DR/EC) 60 mg PO BID cyclobenzaprine 10 mg tablet 10 mg PO HS leflunomide 20 mg tablet 20 mg PO DAILY vitamin Q84-[id number] B1 1,000-100 mg/mL solution See Rx Instructions IM .COMPLEX Rx Instructions: intramuscularly 2X A MONTH; Prolia 60 mg/mL syringe 60 mg SQ [id number] cholecalciferol (vitamin D3) 125 mcg (5,000 unit) capsule 125 mcg PO DAILY acyclovir 400 mg tablet 400 mg PO BID loperamide 2 mg capsule 2 mg PO Q6H PRN (Reason: Diarrhea) calcium carbonate-vitamin D3 [Calcium 600 with Vitamin D3] 600 mg-12.5 mcg (500 unit) capsule See Rx Instructions PO .COMPLEX Rx Instructions: I TAB ,DAILY orally; amitriptyline 25 MG tablet 25 mg PO DAILY oxycodone 5 MG capsule 7.5 mg PO HS rosuvastatin [Crestor] 20 MG tablet 20 mg PO DAILY metoprolol tartrate 25 MG tablet 25 mg PO BID diclofenac sodium [Voltaren] 100 GM gel 100 g topical DAILY omeprazole 20 MG tablet,delayed release (DR/EC) 20 mg PO DAILY pramipexole 1 mg tablet 0.5 mg PO HS warfarin [Coumadin] 10 mg tablet 9 mg PO DAILY Patient Comments: ALTENATE 7MG AND 8MG prednisone 20 mg tablet 40 mg PO DAILY 5 Days Qty: 10 0RF hydrochlorothiazide 25 mg tablet 25 mg PO DAILY Qty: 30 1RF nitrofurantoin monohyd/m-cryst [Macrobid] 100 mg capsule 100 mg PO BID 5 Days Qty: 10 0RF Rx Instructions: must administer with a meal/food Referrals Follow up/Referrals: Provider,Referral, [Referring] - See instructions Activity Restrictions/Add. Instructions Additional Instructions/Restrictions: Continue following with your family doctor regarding this visit to the emergency department. Call your family doctor to establish care for this visit to the emergency department and schedule follow-up within 48 hours to ensure improvement. If you have any worsening of your condition or any other concerning signs or symptoms, return to the emergency department or your primary care doctor for further evaluation. Return to the emergency department or your family doctor in 10 days to have monica removed. Clinical Impressions Clinical Impression: Closed head injury, Laceration of scalp Instructions Patient Instructions: DI for Laceration Repair Discharge ED Provider: Michael Ann General Adult HPI General Chief complaint: Wound/Laceration Stated complaint: Fall Time Seen by Provider: 08/03/23 11:02 Mode of Arrival: EMS Source of Information: Patient and EMS Limitations: No Limitations Description of Symptoms (Recalled from ER Triage Doc. by RN): pt presents to ED via [facility] for a laceration. pt reports that she was in the bathroom and got tripped onher feet and had a fall hitting the back of her head. pt does have approx 1 inch laceration. well and approximated. pt reports headache but no neck pain or back pain. 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 Patient states that she was using her walker just before arrival. She turned, tripped, hit the back of her head on door. No loss of consciousness. EMS was called because patient on anticoagulation. Brought to the emergency department. Denies confusion, headache, neurologic deficits, neck pain, back pain, or any other concerns. Hemostatic on my initial evaluations. Please note that above description of symptoms, in this electronic medical record under categorization of recalled from ER triage doctor by RN are reflective of an initial nursing assessment, however, is not reflective of my full history and physical exam that was personally taken and clarified. Consequentially, this preceding description of symptoms, which may include the patient's categorized chief complaint in the EMR, do not reflect my personal clinical impression, and the ultimate description of history of present illness and patient stated complaints should be deferred to this section of the note. Unless stated otherwise or congruent with this section of the note, additional signs, symptoms, or incongruence should be interpreted as inaccurate with my clinical impression. Related Data Home Medications Medication Instructions Recorded Confirmed amitriptyline 25 mg tablet 25 mg PO DAILY unknown 12/23/17 07/09/23 diclofenac sodium 1 % topical gel 100 g topical DAILY unknown 12/23/17 07/09/23 (Voltaren) metoprolol tartrate 25 mg tablet 25 mg PO BID High blood pressure 12/23/17 07/09/23 omeprazole 20 mg tablet,delayed 20 mg PO DAILY GERD 12/23/17 07/09/23 release oxycodone 5 mg capsule 7.5 mg PO HS Pain 12/23/17 07/09/23 rosuvastatin 20 mg tablet (Crestor) 20 mg PO DAILY Cholesterol 12/23/17 07/09/23 acyclovir 400 mg tablet 400 mg PO BID 06/26/23 07/09/23 calcium carbonate 600 mg-vitamin See Rx Instructions PO .COMPLEX 06/26/23 07/09/23 D3 12.5 mcg (500 unit) capsule (Calcium 600 with Vitamin D3) cholecalciferol (vitamin D3) 125 125 mcg PO DAILY 06/26/23 07/09/23 mcg (5,000 unit) capsule cyclobenzaprine 10 mg tablet 10 mg PO HS 06/26/23 07/09/23 denosumab 60 mg/mL subcutaneous 60 mg SQ [id number] 06/26/23 07/09/23 syringe (Prolia) duloxetine 60 mg capsule,delayed 60 mg PO BID 06/26/23 07/09/23 release folic acid 1 mg tablet 1 mg PO DAILY 06/26/23 07/09/23 gabapentin 300 mg capsule 300 mg PO Q8H 06/26/23 07/09/23 leflunomide 20 mg tablet 20 mg PO DAILY 06/26/23 07/09/23 loperamide 2 mg capsule 2 mg PO Q6H PRN Diarrhea 06/26/23 07/09/23 meloxicam 7.5 mg tablet 7.5 mg PO DAILY 06/26/23 07/09/23 pramipexole 1 mg tablet 0.5 mg PO HS unknown 06/26/23 07/09/23 vitamin [id number] B1 1,000 See Rx Instructions IM .COMPLEX 06/26/23 07/09/23 mcg-100 mg/mL injection solution warfarin 10 mg tablet (Coumadin) 9 mg PO DAILY Blood thinner 06/26/23 07/09/23 Previous Rx's Medication Instructions Recorded hydrochlorothiazide 25 mg tablet 25 mg PO DAILY #30 tabs 07/09/23 nitrofurantoin 100 mg PO BID 5 days #10 caps 07/09/23 monohydrate/macrocrystals 100 mg capsule (Macrobid) prednisone 20 mg tablet 40 mg (2 x 20 mg) PO DAILY 5 days 07/09/23 #10 tabs Allergies Allergy/AdvReac Type Severity Reaction Status Date / Time Aspirin Allergy Unknown Uncoded 04/11/17 14:29 CLASS: 12:20 - SKELETAL Allergy Unknown Uncoded 04/11/17 14:29 MUSCLE RELAXANTS Clindamycin Allergy Unknown Uncoded 04/11/17 14:29 DEHIST Allergy Unknown Uncoded 04/11/17 14:29 From ENTEX LA Allergy Unknown Uncoded 04/11/17 14:29 From HYCODAN Allergy Unknown Uncoded 04/11/17 14:29 From LINCOCIN Allergy Unknown Uncoded 04/11/17 14:29 From LIPITOR Allergy Unknown Uncoded 04/11/17 14:29 From LOVENOX Allergy Unknown Uncoded 04/11/17 14:29 From PARAFON FORTE DSC Allergy Unknown Uncoded 04/11/17 14:29 ILOSONE Allergy Unknown Uncoded 04/11/17 14:29 Macrolide/Antibacterial Allergy Unknown Uncoded 04/11/17 14:29 Methocarbamol Allergy Unknown Uncoded 04/11/17 14:29 MORPHINE Allergy Unknown Uncoded 04/11/17 14:29 Naloxone Allergy Unknown Uncoded 04/11/17 14:29 Opioid Agonist/Antagonist Allergy Unknown Uncoded 04/11/17 14:29 Penicillin Allergy Unknown Uncoded 04/11/17 14:29 Pentazocine Allergy Unknown Uncoded 04/11/17 14:29 Quinolone Allergy Unknown Uncoded 04/11/17 14:29 PFSH PFSH Disclaimer: The information contained in this section may have been updated after the patient was seen, as this information can be updated by other users. Medical History (Updated 08/03/23 @ 12:15 by Michael Ann MD) History of DVT (deep vein thrombosis) Hyperlipidemia Fibromyalgia Surgical History (Updated 06/26/23 @ 11:35 by Nancy Curiel) History of Hx of cholecystectomy H/O: hysterectomy Family History (Updated 06/26/23 @ 11:17 by Nancy Curiel) Other Coronary artery disease Diabetes Heart attack Social History (Updated 06/26/23 @ 11:29 by Nancy Curiel) Smoking Status: Never smoker alcohol intake: never substance use type: denies use current occupational status: retired Travel in the last 8 weeks: None household members: significant other housing: house marital status: ROS Obtained: Yes All systems reviewed & no additional complaints except as documented Physical Exam General General appearance: alert and in no apparent distress Head Head exam: normocephalic and other (3 cm laceration occipital scalp in the midline. Hemostatic. Linear and uncomplicated) Eye Eye exam: Present normal appearance, PERRL and EOMI ENT ENT exam: Present mucous membranes moist Neck Neck exam: Present normal inspection, full ROM and trachea midline Respiratory Respiratory exam: Absent respiratory distress, wheezes, stridor, accessory muscle use or prolonged expiratory phase Cardiovascular Cardiovascular exam: Present normal rhythm Abdominal Exam Abdominal exam: Present soft; Absent distention, tenderness, guarding, rebound or rigidity Extremities Exam Extremities exam: Absent edema Neurological Exam Neurological exam: Present alert, oriented X3, CN II-XII intact and normal gait; Absent motor sensory deficit Skin Skin exam: Present warm and dry; Absent diaphoresis or erythema Medical Decision Making Medical Records Medical records reviewed: Yes I reviewed the patient's medical records. Rony Inquiry Pt receiving controlled substance: No Rony was queried for this patient: No Vital Signs: 08/03/23 11:00 08/03/23 11:31 08/03/23 12:22 Temperature 98.7 F 98.0 F Temperature Source Oral Oral Pulse Rate 68 65 Pulse Rate [Left Radial] 74 Respiratory Rate 15 18 Blood Pressure 121/66 134/71 Blood Pressure [Right Arm] 143/73 H Blood Pressure Mean 84 Blood Pressure Mean [Right Arm] 96 Blood Pressure Source Automatic Cuff Blood Pressure Position Sitting 02 Sat by Pulse Oximetry 95 96 Oxygen Delivery Method Room Air Room Air Orders (Tests/Meds): ED MEDICATIONS Discontinued Medications Generic Name Dose Route Start Last Admin Trade Name Freq PRN Reason Stop Dose Admin Acetaminophen 1,000 mg 08/03/23 11:17 08/03/23 11:20 Acetaminophen 500mg Tab PO 08/03/23 11:18 1,000 mg ONCE ONE Administration Ibuprofen 400 mg 08/03/23 11:17 08/03/23 11:19 Ibuprofen 400 Mg Tablet PO 08/03/23 11:18 400 mg ONCE ONE Administration Lidocaine HCl 10 ml 08/03/23 11:55 08/03/23 11:56 Lidocaine 1% 10ml Mdv SQ 08/03/23 11:56 10 ml ONCE ONE Administration ORDERS Category Date Time Status CT cervical spine wo con Stat Cat Scan 08/03/23 11:[address] head/brain wo con Stat Cat Scan 08/03/23 11:02 Completed Medical Decision Narrative: This is a 62-year-old female with history of hypertension, hyperlipidemia, 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 Patient states that she was using her walker just before arrival. She turned, tripped, hit the back of her head on door. No loss of consciousness. EMS was called because patient on anticoagulation. Brought to the emergency department. Denies confusion, headache, neurologic deficits, neck pain, back pain, or any other concerns. Hemostatic on my initial evaluations. History obtained with patient and EMS. On arrival, patient hemodynamically stable, neurologically intact, appropriate. Complaining of mild pain in her occipital scalp. She has a 3 cm laceration that is linear, hemostatic. No signs of basilar or depressed skull fracture. No neck tenderness. Overall well-appearing. Differential includes subarachnoid hemorrhage, subdural hemorrhage, epidural hematoma, skull fracture, among others. Because patient had INR drawn yesterday, is reliable, no hematologic workup deemed necessary at this time. CT head and C-spine will be obtained. On independent interpretation of CTs, no acute intracranial bleed or skull fracture. No evidence of cervical spine injury. Because patient at baseline without signs or symptoms of clinical decompensation, deemed appropriate for discharge. Results were relayed to patient who voiced understanding and were agreeable to outpatient management and follow up. I discussed my clinical impression with patient and answered all questions. At this time, the evidence for any other entities in the differential is insufficient to warrant any further testing or ED observation. This was explained as well. Advisory was given that persistent or worsening symptoms require further evaluation. I confirmed the understanding of this discussion. Procedures Laceration Laceration 1: Site: scalp Size (cm): 3 Description: linear Depth: simple, single layer Local Anesthetic: lidocaine 1% Amount of anesthesia used (mL): 5 Pre-repair: wound explored Skin layer closed with: other (Monica x 4) Number of sutures: 4 Critical Care Critical Care Time Critical Care Time: No
--- NOTE | 2023-08-03 11:16 | PC.NURSE ---
pt refused c collar with EMS. pt also refsued c collar upon arrival to ED
--- NOTE | 2023-08-03 11:16 | PC.NURSE ---
pts laceration cleaned with hibaclens and sterile saline
[2023-08-03] MEDS: IBUPROFEN 400 MG TABLET PO (11:19)
[2023-08-03] MEDS: ACETAMINOPHEN 500MG TAB 1000 MG PO (11:20)
[2023-08-03 11:31] VITALS: BP 121/66; PULSE 68; O2SAT 96
--- NOTE | 2023-08-03 11:42 | PC.NURSE ---
pt to CT via stretcher
[2023-08-03] MEDS: LIDOCAINE 1% 10ML MDV 10 ML SQ (11:56)
[2023-08-03 12:22] VITALS: BP 134/71; PULSE 65; RESP 18; TEMP 36.7; O2SAT 97
== END 2023-08-03 12:24 | disposition home or self-care (01) ==
PROVIDERS: Emergency Provider Emergency Medicine; PCP Family Medicine
DX: S09.8XXA Other specified injuries of head, initial encounter (principal); S01.01XA Laceration without foreign body of scalp, initial encounter; W01.10XA Fall on same level from slipping, tripping and stumbling with subsequent striking against unspecified object, initial encounter; I10 Essential (primary) hypertension; E78.5 Hyperlipidemia, unspecified; Z86.718 Personal history of other venous thrombosis and embolism; Z79.01 Long term (current) use of anticoagulants
CPT/HCPCS: 12002; 70450; 72125; 99285

== ENCOUNTER 2023-08-31 13:44 | Outpatient (RCR) | payer BC, SELFPAY | END 2023-08-31 13:55 | disposition home or self-care (01) | LOC: PT 13:44 | PROVIDERS: Visit Provider Nurse Practitioner | DX: L08.9 Local infection of the skin and subcutaneous tissue, unspecified (principal); S31.104A Unspecified open wound of abdominal wall, left lower quadrant without penetration into peritoneal cavity, initial encounter | CPT/HCPCS: 97163 ==

== ENCOUNTER 2023-09-08 13:50 | Outpatient (CLI) | payer BC, SELFPAY | END 2023-09-08 14:40 | disposition home or self-care (01) | LOC: INF 13:52 | PROVIDERS: PCP Family Medicine; Visit Provider Surgery | DX: Z48.01 Encounter for change or removal of surgical wound dressing (principal) | CPT/HCPCS: G0463 ==

== ENCOUNTER 2023-09-09 13:45 | Outpatient (CLI) | payer BC, SELFPAY | END 2023-09-09 23:59 | disposition home or self-care (01) | LOC: INF 13:47 | PROVIDERS: PCP Family Medicine; Visit Provider Surgery | DX: Z48.01 Encounter for change or removal of surgical wound dressing (principal) | CPT/HCPCS: G0463 ==

== ENCOUNTER 2023-09-10 14:04 | Outpatient (CLI) | payer BC, SELFPAY | END 2023-09-10 14:38 | disposition home or self-care (01) | LOC: INF 14:05 | PROVIDERS: PCP Family Medicine; Visit Provider Surgery | DX: Z48.01 Encounter for change or removal of surgical wound dressing (principal) | CPT/HCPCS: G0463 ==

== ENCOUNTER 2023-09-11 12:55 | Outpatient (CLI) | payer BC, SELFPAY | END 2023-09-11 13:15 | disposition home or self-care (01) | LOC: INF 12:56 | PROVIDERS: PCP Family Medicine; Visit Provider Surgery | DX: Z48.01 Encounter for change or removal of surgical wound dressing (principal) | CPT/HCPCS: G0463 ==

== ENCOUNTER 2023-09-12 13:52 | Outpatient (CLI) | payer BC, SELFPAY | END 2023-09-12 14:25 | disposition home or self-care (01) | LOC: INF 13:53 | PROVIDERS: PCP Family Medicine; Visit Provider Surgery | DX: Z48.01 Encounter for change or removal of surgical wound dressing (principal) | CPT/HCPCS: G0463 ==

== ENCOUNTER 2023-09-13 13:41 | Outpatient (CLI) | payer BC, SELFPAY | END 2023-09-13 14:00 | disposition home or self-care (01) | PROVIDERS: PCP Family Medicine; Visit Provider Surgery | DX: Z48.01 Encounter for change or removal of surgical wound dressing (principal); T14.8XXA Other injury of unspecified body region, initial encounter; L98.499 Non-pressure chronic ulcer of skin of other sites with unspecified severity | CPT/HCPCS: G0463 ==

== ENCOUNTER 2023-09-15 12:48 | Outpatient (CLI) | payer BC, SELFPAY ==
--- NOTE | 2023-09-15 12:49 | CT_ITS ---
FINAL REPORT TECHNIQUE: After the administration of oral and intravenous contrast, axial images were obtained through the abdomen and pelvis by computed tomography. The study was performed with techniques to keep radiation dose as low as reasonably achievable, (ALARA). Individual dose reduction techniques using automated exposure control or adjustment of mA and/or kV according to the patient's size were employed. CLINICAL HISTORY: wound COMPARISON: None FINDINGS: Abdomen: The lung bases are clear. A small sliding-type hiatal hernia is present. Postoperative changes of a gastric bypass are present. The liver parenchyma is homogeneous. The gallbladder is surgically absent. The spleen, adrenals and kidneys appear unremarkable. The pancreas is atrophic. The aorta is normal in caliber. An IVC filter is present. There is no free fluid or adenopathy. There is posterior fusion hardware bridging the lower lumbar spine which produces mild streak artifact. Pelvis: The appendix is not identified. The urinary bladder is unremarkable. There is no free fluid or adenopathy. There is a subcutaneous soft tissue defect in the lateral left pelvic wall, best seen on images #77 through 85 of series 3. No associated fluid collection or abscess is present. IMPRESSION: No acute intra-abdominal process. Subcutaneous soft tissue defect in the lateral left pelvic wall, best seen on images 77 through 85 of series 3, without an associated fluid collection or abscess. Reviewed, Interpreted and Dictated by Mekhi Valenzuela MD Transcribed by Rosalba Lucia Authenticated and [facility]
[2023-09-15 13:29] LABS: Blood Urea Nitrogen 12 mg/dl (7-17); Estimated Glomerular Filt Rate 101 ml/min (>60); GFR (African American) 122 ML/MIN (>60)
[2023-09-15] MEDS: SODIUM CHLORIDE 0.9% 10ML SYR (RAD ONLY) 10 ML IV (14:17)
[2023-09-15] MEDS: IOPAMIDOL-370 (76%);100ML BOTTLE 75 ML IV (14:17)
--- NOTE | 2023-09-15 14:45 | PC.NURSE ---
1445-called in levaquin 500mg po daily for 10 days v/o /jose hanson
== END 2023-09-15 14:25 | disposition home or self-care (01) ==
LOC: RAD 12:49
PROVIDERS: PCP Family Medicine; Visit Provider Surgery
DX: T14.8XXA Other injury of unspecified body region, initial encounter (principal)
CPT/HCPCS: 36415; 74177; 82565; 84520; G0463; Q9967

== ENCOUNTER 2023-09-16 13:38 | Outpatient (CLI) | payer BC, SELFPAY | END 2023-09-16 23:59 | disposition home or self-care (01) | LOC: INF 13:38 | PROVIDERS: PCP Family Medicine; Visit Provider Surgery | DX: Z48.01 Encounter for change or removal of surgical wound dressing (principal) | CPT/HCPCS: G0463 ==

== ENCOUNTER 2023-09-17 13:42 | Outpatient (CLI) | payer BC, SELFPAY | END 2023-09-17 23:59 | disposition home or self-care (01) | LOC: INF 13:43 | PROVIDERS: PCP Family Medicine; Visit Provider Surgery | DX: Z48.01 Encounter for change or removal of surgical wound dressing (principal) | CPT/HCPCS: G0463 ==

== ENCOUNTER 2023-09-18 13:49 | Outpatient (CLI) | payer BC, SELFPAY | END 2023-09-18 23:59 | disposition home or self-care (01) | LOC: INF 13:50 | PROVIDERS: PCP Family Medicine; Visit Provider Surgery | DX: Z48.01 Encounter for change or removal of surgical wound dressing (principal) | CPT/HCPCS: G0463 ==

== ENCOUNTER 2023-09-20 13:23 | Outpatient (CLI) | payer BC, SELFPAY | END 2023-09-20 13:35 | disposition home or self-care (01) | LOC: INF 13:23 | PROVIDERS: PCP Family Medicine; Visit Provider Surgery | DX: R10.32 Left lower quadrant pain (principal); S31.104A Unspecified open wound of abdominal wall, left lower quadrant without penetration into peritoneal cavity, initial encounter; T14.8XXA Other injury of unspecified body region, initial encounter; Z48.01 Encounter for change or removal of surgical wound dressing | CPT/HCPCS: G0463 ==

== ENCOUNTER 2023-09-21 13:49 | Outpatient (CLI) | payer BC, SELFPAY | END 2023-09-21 13:55 | disposition home or self-care (01) | LOC: INF 13:49 | PROVIDERS: PCP Family Medicine; Visit Provider Surgery | DX: Z48.01 Encounter for change or removal of surgical wound dressing (principal) | CPT/HCPCS: G0463 ==

== ENCOUNTER 2023-09-22 13:12 | Outpatient (CLI) | payer BC, SELFPAY | END 2023-09-22 13:45 | disposition home or self-care (01) | LOC: INF 13:13 | PROVIDERS: PCP Family Medicine; Visit Provider Surgery | DX: R10.32 Left lower quadrant pain (principal); S31.104A Unspecified open wound of abdominal wall, left lower quadrant without penetration into peritoneal cavity, initial encounter; T14.8XXA Other injury of unspecified body region, initial encounter; Z48.01 Encounter for change or removal of surgical wound dressing | CPT/HCPCS: G0463 ==

== ENCOUNTER 2023-09-23 13:35 | Outpatient (CLI) | payer BC, SELFPAY | END 2023-09-23 23:59 | disposition home or self-care (01) | LOC: INF 13:36 | PROVIDERS: PCP Family Medicine; Visit Provider Surgery | DX: R10.32 Left lower quadrant pain (principal); S31.104A Unspecified open wound of abdominal wall, left lower quadrant without penetration into peritoneal cavity, initial encounter; T14.8XXA Other injury of unspecified body region, initial encounter; Z48.01 Encounter for change or removal of surgical wound dressing | CPT/HCPCS: G0463 ==

== ENCOUNTER 2023-09-24 13:31 | Outpatient (CLI) | payer BC, SELFPAY | END 2023-09-24 23:59 | disposition home or self-care (01) | LOC: INF 13:32 | PROVIDERS: PCP Family Medicine; Visit Provider Surgery | DX: R10.32 Left lower quadrant pain (principal); S31.104A Unspecified open wound of abdominal wall, left lower quadrant without penetration into peritoneal cavity, initial encounter; T14.8XXA Other injury of unspecified body region, initial encounter; Z48.01 Encounter for change or removal of surgical wound dressing | CPT/HCPCS: G0463 ==

== ENCOUNTER 2023-09-25 13:29 | Outpatient (CLI) | payer BC, SELFPAY | END 2023-09-25 14:17 | disposition home or self-care (01) | LOC: INF 13:29 | PROVIDERS: PCP Family Medicine; Visit Provider Surgery | DX: Z48.01 Encounter for change or removal of surgical wound dressing (principal) | CPT/HCPCS: G0463 ==

== ENCOUNTER 2023-09-26 13:23 | Outpatient (CLI) | payer BC, SELFPAY ==
--- NOTE | 2023-09-26 13:39 | PC.NURSE ---
Dr. Forde examined left lower abdominal wound/ no new orders/ proceed with dressing changes as ordered. MD does state he is extending po Levaquin coverage for longer amount of time and he will fax that order to patient's pharmacy. Patient tolerated all well
== END 2023-09-26 23:59 | disposition home or self-care (01) ==
PROVIDERS: PCP Family Medicine; Visit Provider Surgery
DX: Z48.00 Encounter for change or removal of nonsurgical wound dressing (principal); S31.109A Unspecified open wound of abdominal wall, unspecified quadrant without penetration into peritoneal cavity, initial encounter
CPT/HCPCS: G0463

== ENCOUNTER 2023-09-27 13:34 | Outpatient (CLI) | payer BC, SELFPAY | END 2023-09-27 13:50 | disposition home or self-care (01) | LOC: INF 13:34 | PROVIDERS: PCP Family Medicine; Visit Provider Surgery | DX: Z48.00 Encounter for change or removal of nonsurgical wound dressing (principal); S31.109D Unspecified open wound of abdominal wall, unspecified quadrant without penetration into peritoneal cavity, subsequent encounter | CPT/HCPCS: G0463 ==

== ENCOUNTER 2023-09-28 14:28 | Outpatient (CLI) | payer BC, SELFPAY | END 2023-09-28 14:45 | disposition home or self-care (01) | LOC: INF 14:29 | PROVIDERS: PCP Family Medicine; Visit Provider Surgery | DX: Z48.00 Encounter for change or removal of nonsurgical wound dressing (principal); S31.109D Unspecified open wound of abdominal wall, unspecified quadrant without penetration into peritoneal cavity, subsequent encounter | CPT/HCPCS: G0463 ==

== ENCOUNTER 2023-09-29 13:48 | Outpatient (CLI) | payer BC, SELFPAY | END 2023-09-29 14:05 | disposition home or self-care (01) | LOC: INF 13:48 | PROVIDERS: PCP Family Medicine; Visit Provider Surgery | DX: Z48.00 Encounter for change or removal of nonsurgical wound dressing (principal); S31.109D Unspecified open wound of abdominal wall, unspecified quadrant without penetration into peritoneal cavity, subsequent encounter | CPT/HCPCS: G0463 ==

== ENCOUNTER 2023-09-30 11:58 | Outpatient (CLI) | payer BC, SELFPAY ==
[2023-09-30 12:15] VITALS: BMI 31.3
[2023-09-30 12:30] VITALS: BP 128/87; PULSE 68; RESP 18; TEMP 36.6; O2SAT 98
== END 2023-09-30 23:59 | disposition home or self-care (01) ==
LOC: INF 11:58
PROVIDERS: PCP Family Medicine; Visit Provider Surgery
DX: R10.32 Left lower quadrant pain (principal); S31.104A Unspecified open wound of abdominal wall, left lower quadrant without penetration into peritoneal cavity, initial encounter; T14.8XXA Other injury of unspecified body region, initial encounter; Z48.01 Encounter for change or removal of surgical wound dressing
CPT/HCPCS: G0463

== ENCOUNTER 2023-10-01 13:56 | Outpatient (CLI) | payer BC, SELFPAY | END 2023-10-01 16:48 | disposition home or self-care (01) | LOC: INF 13:57 | PROVIDERS: PCP Family Medicine; Visit Provider Surgery | DX: Z48.00 Encounter for change or removal of nonsurgical wound dressing (principal); S31.109D Unspecified open wound of abdominal wall, unspecified quadrant without penetration into peritoneal cavity, subsequent encounter | CPT/HCPCS: G0463 ==

== ENCOUNTER 2023-10-02 13:21 | Outpatient (CLI) | payer BC, SELFPAY | END 2023-10-02 13:35 | disposition home or self-care (01) | PROVIDERS: PCP Family Medicine; Visit Provider Surgery | DX: Z48.00 Encounter for change or removal of nonsurgical wound dressing (principal); S31.109D Unspecified open wound of abdominal wall, unspecified quadrant without penetration into peritoneal cavity, subsequent encounter | CPT/HCPCS: G0463 ==

== ENCOUNTER 2023-10-03 10:59 | Outpatient (CLI) | payer BC, SELFPAY | END 2023-10-03 11:33 | disposition home or self-care (01) | LOC: INF 10:59 | PROVIDERS: PCP Family Medicine; Visit Provider Surgery | DX: Z48.00 Encounter for change or removal of nonsurgical wound dressing (principal); S31.109D Unspecified open wound of abdominal wall, unspecified quadrant without penetration into peritoneal cavity, subsequent encounter | CPT/HCPCS: G0463 ==

== ENCOUNTER 2023-10-04 14:19 | Outpatient (CLI) | payer BC, SELFPAY | END 2023-10-04 14:30 | disposition home or self-care (01) | LOC: INF 14:19 | PROVIDERS: PCP Family Medicine; Visit Provider Surgery | DX: Z48.00 Encounter for change or removal of nonsurgical wound dressing (principal); S31.109D Unspecified open wound of abdominal wall, unspecified quadrant without penetration into peritoneal cavity, subsequent encounter | CPT/HCPCS: G0463 ==

== ENCOUNTER 2023-10-05 13:31 | Outpatient (CLI) | payer BC, SELFPAY | END 2023-10-05 13:50 | disposition home or self-care (01) | LOC: INF 13:32 | PROVIDERS: PCP Family Medicine; Visit Provider Surgery | DX: Z48.00 Encounter for change or removal of nonsurgical wound dressing (principal); S31.109D Unspecified open wound of abdominal wall, unspecified quadrant without penetration into peritoneal cavity, subsequent encounter | CPT/HCPCS: G0463 ==

== ENCOUNTER 2023-10-06 14:15 | Outpatient (CLI) | payer BC, SELFPAY ==
--- NOTE | 2023-10-06 14:52 | PC.NURSE ---
1425 - WOUND BED RED. UPPER EDGE OF WOUND NOTED TO HAVE BLACK, NECROTIC TISSUE. EDGES OF WOUND VERY TENDER TO TOUCH. WOUND HAS FOUL SMELLING ODOR. MD OFFICE HAS BEEN MADE AWARE OF ABOVE FINDINGS AND PT WAS SCHEDULED TO SEE DR CURRIE ON 10/10/23.
== END 2023-10-06 14:40 | disposition home or self-care (01) ==
LOC: INF 14:16
PROVIDERS: PCP Family Medicine; Visit Provider Surgery
DX: Z48.00 Encounter for change or removal of nonsurgical wound dressing (principal); S31.109D Unspecified open wound of abdominal wall, unspecified quadrant without penetration into peritoneal cavity, subsequent encounter
CPT/HCPCS: G0463

== ENCOUNTER 2023-10-07 13:51 | Outpatient (CLI) | payer BC, SELFPAY | END 2023-10-07 23:59 | disposition home or self-care (01) | LOC: INF 13:52 | PROVIDERS: PCP Family Medicine; Visit Provider Surgery | DX: Z48.00 Encounter for change or removal of nonsurgical wound dressing (principal); S31.109D Unspecified open wound of abdominal wall, unspecified quadrant without penetration into peritoneal cavity, subsequent encounter | CPT/HCPCS: G0463 ==

== ENCOUNTER 2023-10-08 13:41 | Outpatient (CLI) | payer BC, SELFPAY | END 2023-10-08 14:25 | disposition home or self-care (01) | PROVIDERS: PCP Family Medicine; Visit Provider Surgery | DX: Z48.00 Encounter for change or removal of nonsurgical wound dressing (principal); S31.109D Unspecified open wound of abdominal wall, unspecified quadrant without penetration into peritoneal cavity, subsequent encounter | CPT/HCPCS: G0463 ==

== ENCOUNTER 2023-10-09 13:32 | Outpatient (CLI) | payer BC, SELFPAY | END 2023-10-09 14:18 | disposition home or self-care (01) | LOC: INF 13:33 | PROVIDERS: PCP Family Medicine; Visit Provider Surgery | DX: Z48.00 Encounter for change or removal of nonsurgical wound dressing (principal); S31.109D Unspecified open wound of abdominal wall, unspecified quadrant without penetration into peritoneal cavity, subsequent encounter | CPT/HCPCS: G0463 ==

== ENCOUNTER 2023-10-11 13:28 | Outpatient (CLI) | payer BC, SELFPAY | END 2023-10-11 13:40 | disposition home or self-care (01) | LOC: INF 13:28 | PROVIDERS: PCP Family Medicine; Visit Provider Surgery | DX: Z48.00 Encounter for change or removal of nonsurgical wound dressing (principal); S31.109D Unspecified open wound of abdominal wall, unspecified quadrant without penetration into peritoneal cavity, subsequent encounter | CPT/HCPCS: G0463 ==

== ENCOUNTER 2023-10-12 13:11 | Outpatient (CLI) | payer BC, SELFPAY | END 2023-10-12 13:28 | disposition home or self-care (01) | LOC: INF 13:12 | PROVIDERS: PCP Family Medicine; Visit Provider Surgery | DX: Z48.00 Encounter for change or removal of nonsurgical wound dressing (principal); S31.109D Unspecified open wound of abdominal wall, unspecified quadrant without penetration into peritoneal cavity, subsequent encounter | CPT/HCPCS: G0463 ==

== ENCOUNTER 2023-10-13 13:12 | Outpatient (CLI) | payer BC, SELFPAY | END 2023-10-13 13:30 | disposition home or self-care (01) | LOC: INF 13:13 | PROVIDERS: PCP Family Medicine; Visit Provider Surgery | DX: Z48.00 Encounter for change or removal of nonsurgical wound dressing (principal); S31.109D Unspecified open wound of abdominal wall, unspecified quadrant without penetration into peritoneal cavity, subsequent encounter | CPT/HCPCS: G0463 ==

== ENCOUNTER 2023-10-14 13:44 | Outpatient (CLI) | payer BC, SELFPAY | END 2023-10-14 14:23 | disposition home or self-care (01) | LOC: INF 13:45 | PROVIDERS: PCP Family Medicine; Visit Provider Surgery | DX: Z48.00 Encounter for change or removal of nonsurgical wound dressing (principal); S31.109D Unspecified open wound of abdominal wall, unspecified quadrant without penetration into peritoneal cavity, subsequent encounter | CPT/HCPCS: G0463 ==

== ENCOUNTER 2023-10-15 14:20 | Outpatient (CLI) | payer BC, SELFPAY | END 2023-10-15 23:59 | disposition home or self-care (01) | LOC: INF 14:20 | PROVIDERS: PCP Family Medicine; Visit Provider Surgery | DX: Z48.00 Encounter for change or removal of nonsurgical wound dressing (principal); S31.109D Unspecified open wound of abdominal wall, unspecified quadrant without penetration into peritoneal cavity, subsequent encounter | CPT/HCPCS: G0463 ==

== ENCOUNTER 2023-10-16 06:05 | Day surgery (SDC) | payer BC, SELFPAY ==
[2023-10-13 12:31] VITALS: BMI 36.2
[2023-10-16] VITALS (9 sets, daily range): BP systolic 140–172; BP diastolic 70–96; PULSE 95–104; RESP 14–18; TEMP 36.6–36.9; O2SAT 90–98
[2023-10-16] MEDS: LACTATED RINGERS 1000ML 1,000 ML 25 ML IV (06:24)
[2023-10-16 06:47] LABS: INR 1.66 (0.9-1.1); Prothrombin Time 17.3 seconds (10.1-12.5)
--- NOTE | 2023-10-16 06:57 | P.OP_ITS ---
Date of procedure: 10/16/23 Pre-op Diagnosis:: Nonhealing traumatic wound Post-op Diagnosis:: Same Procedure performed:: Debridement of skin and subcutaneous tissue Surgeon:: Jayesh Forde MD HYDROPONICS WORKER:: Jason Mclaughlin Anesthesia: LMA Estimated blood loss (mL): 25 Clinical Note:: Patient is a 62-year-old female with history of allergies to aspirin, muscle relaxants, clindamycin, Entex LA, Hycodan, Lincocin, Lipitor, Lovenox, Parafon forte, Ilosone, macrolides, methocarbamol, morphine, naloxone, penicillin, pentazocine, quinolone, who presents for wound debridement. She has a history of hypertension, hyperlipidemia, numerous DVTs (last diagnosed 2000) on chronic warfarin anticoagulation therapy with IVC filter in place, numerous cervical disc herniations. I had initially seen her in the office on 09/07/2023 as a r servandoerral from Dr. Mullins for recurrent nonhealing wound on her left lower quadrant. She apparently had a soft tissue infection of the left lower abdomen in the fall 2022 and developed a wound. She had been seen extensively with outpatient wound care physical therapy over a period of months and the area had apparently healed. However, she had fallen and the area opened back up. It was refractory to conservative measures and there was a concern that she may need surgical excision and debridement. She was managed without surgical debridement for some time as it was felt the area may be amenable to more traditional dressing changes. Initially she underwent wet-to-dry dressings with Dakin solution. Of note, she did have wound cultures performed in her primary care provider's office on 09/09/2023 and this revealed heavy growth of Pseudomonas aeruginosa, heavy growth Serratia liquifaciens, and light growth Escherichia Coli. There was concern regarding the wound regressing with some greenish drainage. She was therefore started on levofloxacin. She was switched to dry dressings due to the amount of drainage from the wound. Due to the persistence of the drainage I had her undergo CT scan to evaluate for any deep undrained abscess. She transiently showed improvement in her wound with levofloxacin and dry dressings. However then regressed and she developed tenderness, induration, erythema, with some focal tissue necrosis and increased drainage once again. At this point the options were discussed with her and it was felt that it may be reasonable to pursue surgical debridement to healthy tissue and possible placement of negative pressure wound therapy dressing. I did explain to the patient that she could develop larger nonhealing wound. In the interim she was started on levofloxacin due to the prior cultures. . Operative findings:: Indurated erythematous tissue Operative note:: Consent was obtained the patient was taken to the operating room. She was ultimately positioned in a supine position. General anesthesia was induced via LMA. Area was prepped and draped in the standard surgical fashion. Wound was marked with a skin marker for planned debridement beyond area of induration to h ealthy tissue. Incision was made circumferentially around the open wound to healthy tissue using electrocautery. Dissection was carried down through subcutaneous tissues and below the area of granulation tissue to normal healthy appearing subcutaneous tissue circumferentially. Wound was thoroughly irrigated with pulsatile saline irrigation using the Interpulse device. Hemostasis was achieved with liberal use of electrocautery. There was good hemostasis. Wound measured 10.5 cm x 7 cm in width and 4 cm in depth. Wound was packed with a dry Kerlix gauze and covered with clean dry sterile dressing. . Condition: stable Disposition: PACU Complications:: None immediately apparent
[2023-10-16] MEDS: LIDOCAINE 1% 20ML MDV 20 ML (07:40)
--- NOTE | 2023-10-16 07:41 | SUR.OPER ---
0725- Patient has several allergies, levoflaxacin ordered for patient for preoperative antibiotics. Patient into OR at 0720. This ASSOCIATE [employer]ATRE PROFESSOR made aware that patient is allergic to contents in levofloxacin. Called pharmacy to verify, pharmacy verified. MD ordered azactam. Pharmacy to make Azactam. MD aware it will be a few minutes for pharamcy to make and send down to OR.
--- NOTE | 2023-10-16 07:42 | P.PNANES_ITS ---
[facility] Disclaimer: The information contained in this section may have been updated after the patient was seen, as this information can be updated by other users. Medical History History of DVT (deep vein thrombosis) Hyperlipidemia Fibromyalgia Surgical History History of Hx of cholecystectomy H/O: hysterectomy Family History Other Coronary artery disease Diabetes Heart attack Social History Smoking Status: Never smoker alcohol intake: never substance use type: denies use current occupational status: retired Travel in the last 8 weeks: None household members: significant other housing: house marital status: [facility] Anesthesia Checklist Patient Identification Patient Identification: Verbal (Name & ) Structural Data Admitted From: Home Planned Operative Procedure/s: i/d abd wound NPO Status Verified Time NPO: 00:00 Additional verifications Anesthesia Reactions: No Hx Blood Transfusions: Yes Blood Transfusion Reaction: No Airway Assessment Mallampati Score:: Class II C-Spine Mobility Assessed: Yes TMJ Mobility Assessed: Yes Dentition: Poor Dentition Neurological Assessment Level of Consciousness: Awake, Alert and Appropriate Anesthesia Plan Anesthesia Risk discussed: Yes Anesthesia Plan: Verified ASA Class: III Anesthesia Type: General
[2023-10-16] MEDS: AZTREONAM 1 GM in 0.9 % SODIUM CHLORIDE 50 ML IV (07:55)
--- NOTE | 2023-10-16 08:09 | EXP.ANES.I ---
[facility] Anesthesia Record Part I Anesthesia Record I Intake, IV Amount: 1,400 Hydration: Adequate Estimated blood loss (mL): 0 Urine output (mL): 0 Blood Pressure: 172/95 SaO2: 94 Pulse Rate: 104 Airway Patency: Patent Respiratory Rate: 14 Temperature: 98.5 F Patient is:: Awake and Stable Stable to PACU at:: 08:08
== END 2023-10-16 09:20 | disposition home or self-care (01) ==
PROVIDERS: PCP Family Medicine; Visit Provider Surgery
PROC: (CPT 11042; principal; 2023-10-16 07:30)
DX: I96 Gangrene, not elsewhere classified (principal); T81.49XA Infection following a procedure, other surgical site, initial encounter; B96.20 Unspecified Escherichia coli [E. coli] as the cause of diseases classified elsewhere; B96.5 Pseudomonas (aeruginosa) (mallei) (pseudomallei) as the cause of diseases classified elsewhere; B96.89 Other specified bacterial agents as the cause of diseases classified elsewhere; I10 Essential (primary) hypertension; Z79.899 Other long term (current) drug therapy; Z79.01 Long term (current) use of anticoagulants; Z86.718 Personal history of other venous thrombosis and embolism
CPT/HCPCS: 11042; 11045 ×11; 85610; 96374; J2250; J2405; J3010; J7120

== ENCOUNTER 2024-01-11 13:00 | Outpatient (RCR) | payer BC, SELFPAY ==
--- NOTE | 2023-10-17 12:10 | HMH.PTOPWND ---
Rehab Outpt Wound Evaluation Rehab OP Wound Evaluation Start: 10/17/23 08:24 Freq: Status: Active Protocol: Document 10/17/23 11:44 PHOSHAYY (Rec: 10/17/23 12:10 PHORSHEILA [id number]) E-signed By Ronny Headley, PT Subjective/History History History This is the initial PT wound care eval for Zaina Estrada, 62 yowf who presents with LLQ abdominal wound now S/P I&D on 10/16/23, and she is ready for wound VAC dressing placement. She reports significant pain and tenderness after surgery and with dressing changes. She has multiple chronic conditions which result in her mobility being severely limited. She had a previous wound in the same area with significant infection from multiple organisms. Subjective Subjective Pain with dressing changes 10/ 10. Elin-wound skin is TTP 3/4 . New diagnosis of cancer in past 12 No months? Wound Eval Wound Left Lower Abdomen Wound Type Incision Is This a Chronic Wound Yes Wound Length (cm) 3.3 Wound Width (cm) 13.0 Wound Depth (cm) 4.5 Wound Bed Appearance Beefy Red,Yellow Percentage Granulated (%) 95 Wound Margins Description Well Defined Surrounding Tissue Appearance [place] Drainage Description Sanguineous Drainage Amount Moderate Wound Topical Solution/Irrigant Saline Irrigant Packing Type Woundvac Sponge Primary Dressing Transparent Drape Yanez-Cool Wound Assessment Tool Assessment Wound size 4=Length x Width 36.1--<80 sq cm Wound depth 5=Full thickness skin loss with extensive destruction, tissue necrosis Wound edges 3=Well-defined, not attached to wound base Wound undermining 1=None present Necrotic tissue type 1=Non visible Necrotic tissue amount 1=None visible Exudate type 2=Bloody Exudate amount 4=Moderate Skin color surrounding wound 1=[place] or normal for ethnic group Peripheral tissue edema 2=Non-pitting edema extends <4 cm around wound Peripheral tissue induration 1=None present Granulation tissue 2=Bright, beefy red;75% to 100 % of wound filled &/or tissue overgrowth Epithelialization 5= < 25% wound covered Wound assessment total score 32 Wound Problems/Impairments Impairments Problems/Impairmments Palpation Tenderness,Impaired Shower/Bathing,Impaired Household Care,Increased Edema ,Lymphedema Present,Wound Care Needs,Subjective C/O Pain, Impaired Self Care/Self Management Prognosis Rehab Potential Good Comment Skilled therapy is necessary to aid pt return to PLOF and reduce overall wound volume to improve healing. Clinical Impression Consistent with Diagnosis Yes Short Term Goals Number of Weeks 4 Decreased Palpation Tenderness Yes: 2/4 elin-wound skin Decrease Edema Yes Decrease Wound Area Yes: by 25% Decrease Subjective C/O Pain Yes: 10/31 with dressing changes Longterm Goals Number of Weeks 8 Decreased Palpation Tenderness Yes: 1/ elin-wound skin Improve Ability to Shower/Bathe Self Yes Improve Ability For Household Care Yes Decrease Lymphedema Yes Decrease Wound Area Yes: by 75% Decrease Subjective C/O Pain Yes: 08/01 with dressing changes Outpatient Therapy Plan of Care Treatment Plan May Include Therapeutic Exercise Including Home Yes Exercise Program Manual Therapy Techniques Yes Neuromuscular Re-education Yes Therapeutic Activities to Return to Yes Previous Functional/Work Level ADL/Self Care Education Yes Orthotics/Bracing/Splinting Yes Manual Lymphatic Drainage Yes Wound Care Yes Eval/Re-Eval Yes Frequency Times per week 2-3 Duration Number of Weeks 8 Addendums This patient is a candidate for social No or vocational rehab? Patient/Guardian verbally acknowledges Yes understanding of treatment program and consents to further treatment? Patient/Guardian verbally acknowledges Yes understanding of diagnosis, prognosis and goals for treatment? Eval Complexity PT Charges 84636 - High Complexity PHYSICIAN CERTIFICATION: I certify the specified therapy services for Zaina Estrada are required, authorized, and reviewed every 30 days.
--- NOTE | 2023-10-17 12:43 | P.PNANES_ITS ---
[facility] Anesthesia Record Part II Anesthesia Record Part II Discharge Time: 08:28 Destination: [facility] PACU nurse assessment reviewed?: Yes Patient Condition:: Good Anesthesia Complications:: None Swallowing reflex intact?: Yes Airway Patency: Patent Cyanosis?: No Blood Pressure: 162/86 SaO2: 97 Respiratory Rate: 18 Pulse Rate: 100 Temperature: 98.4 F Mental Status: Alert & Oriented Pain level:: 0 Nausea and/or vomitting:: None Intake, IV Amount: 1,500 Hydration: Adequate
[2023-10-17 12:45] VITALS: BP 162/86; PULSE 100; RESP 18; TEMP 36.9; O2SAT 97
--- NOTE | 2023-11-13 11:43 | HMH.RHREAS ---
Rehab Reassessment Rehab OP Re-assessment Start: 10/17/23 08:24 Freq: Status: Active Protocol: Document 11/13/23 11:37 [email or web address] (Rec: 11/13/23 11:43 PHORSHEILA [id number]) E-signed By Ronny Headley, PT [place] Wound Assessment Tool Assessment Wound size 2=Length x Width 4--<16 sq cm Wound depth 3=Full thickness skin loss involving damage or necrosis of Wound edges 3=Well-defined, not attached to wound base Wound undermining 2=Undermining <2 cm in any area Necrotic tissue type 1=Non visible Necrotic tissue amount 1=None visible Exudate type 2=Bloody Exudate amount 3=Small Skin color surrounding wound 1=[place] or normal for ethnic group Peripheral tissue edema 2=Non-pitting edema extends <4 cm around wound Peripheral tissue induration 1=None present Granulation tissue 2=Bright, beefy red;75% to 100 % of wound filled &/or tissue overgrowth Epithelialization 5= < 25% wound covered Wound assessment total score 28 Rehab Re-assessment Subjective Subjective Pt reports continued pain with dressing changes, Sometimes that foam sticks to the wound and it really hurts to pull it out. Objective Objective Notes LLQ abdominal wound: L= 1.0 cm , W= 9.4 cm, D= 2.4 cm. 100% healthy granulation tissue noted in wound bed. 78% wound surface area healed. BWAT: 32 on IE vs 28 this date Assessment Progress Assessment Progressing as Expected Assessment Notes Pt has shown significant reduction in total wound surface area and wound depth. She continues to need skilled therapy to complete healing of her abdominal wound and return her to her PLOF. Patient goals met ST/4 LT/6 Plan Plan Continue per initial POC Frequency of Therapy 2-3 x/wk Duration of therapy 4 wks Time and Billing Re-Eval Time 11 Re-Eval Billing Units 1 PHYSICIAN CERTIFICATION: I certify the specified therapy services for Zaina Estrada are required, authorized, and reviewed every 30 days.
--- NOTE | 2023-12-11 14:08 | HMH.RHREAS ---
Rehab Reassessment Rehab OP Re-assessment Start: 10/17/23 08:24 Freq: Status: Active Protocol: Document 12/11/23 14:04 [email or web address] (Rec: 12/11/23 14:08 PHOSHAYY [id number]) E-signed By Ronny Headley, PT [place] Wound Assessment Tool Assessment Wound size 1=Length x Width <4 sq cm Wound depth 3=Full thickness skin loss involving damage or necrosis of Wound edges 3=Well-defined, not attached to wound base Wound undermining 1=None present Necrotic tissue type 1=Non visible Necrotic tissue amount 1=None visible Exudate type 2=Bloody Exudate amount 3=Small Skin color surrounding wound 2=Bright red &/or blanches to touch Peripheral tissue edema 1=No swelling or edema Peripheral tissue induration 2=Induration,<2 cm around wound Granulation tissue 2=Bright, beefy red;75% to 100 % of wound filled &/or tissue overgrowth Epithelialization 3=50% to <75% wound covered &/ or epithelial tissue extends to < 0.5cm Wound assessment total score 25 Rehab Re-assessment Subjective Subjective Pt reports less preethi-wound tenderness and only mild skin irritation surrounding the lateral aspect of the wound. Objective Objective Notes LLQ abdominal wound: L= 0.3 cm , W= 6.0 cm, D= 1.0 cm. 100% healthy granulation tissue noted in wound bed. BWAT: 32 on IE vs 25 this date Assessment Progress Assessment Progressing as Expected Assessment Notes Pt has shown significant reduction in total wound surface area and wound depth. She continues to need skilled therapy to complete healing of her abdominal wound and return her to her PLOF. Patient goals met ST/4 LT/6 Plan Plan Continue per initial POC Frequency of Therapy 2-3 x/wk Duration of therapy 4 wks Time and Billing Re-Eval Time 10 Re-Eval Billing Units 1 PHYSICIAN CERTIFICATION: I certify the specified therapy services for Zaina Estrada are required, authorized, and reviewed every 30 days.
== END 2024-01-11 23:59 | disposition home or self-care (01) ==
LOC: PT 13:00
PROVIDERS: Visit Provider Surgery
DX: R10.32 Left lower quadrant pain (principal); S31.104A Unspecified open wound of abdominal wall, left lower quadrant without penetration into peritoneal cavity, initial encounter
CPT/HCPCS: 97163; 97164; 97597; 97605

== ENCOUNTER 2024-09-19 12:42 | Outpatient (CLI) | payer BC, SELFPAY ==
--- NOTE | 2024-09-19 12:44 | CA_ITS ---
FINAL REPORT TECHNIQUE: extremity venous duplex was performed with augmentation and compression. CLINICAL HISTORY: BRUISING MEDIAL THIGH X 2 DAYS,TENDER,NKI,PT ON WARFARIN,EDEMA COMPARISON: None FINDINGS: Proper flow is seen throughout the left lower extremity deep venous system. There is no evidence of left leg deep venous thrombosis. IMPRESSION: no deep venous thrombosis in the left lower extremity. Reviewed, Interpreted and Dictated by Mekhi Valenzuela MD Transcribed by Rosalba Lucia Authenticated and [facility]
--- OUTSIDE RECORDS SUMMARY | 2024-09-19 12:45 | XMS_ITS | Data Portability ---
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 Belle many years ago who presents with progressive cervical myelopathy. I studied her MRI C-spine from 06/09/2023 and MRI L-spine from 05/08/2023, which reveals severe C5/6 stenosis and C7/T1 stenosis with possible cord signal change. There appears to be a large right synovial cyst/ligamentous hypertrophy compressing the cord at C7/T1. It appears to be extradural/extrame dullary, however will obtain an MRI with contrast to evaluate further. Her MRI is also outdated and is approximately 8 months old. She also has multilevel stenosis along her L-spine, but her symptoms correlate more closely with cervical myelopathy. There is however some possible cord compression at T11/12 as well, though the axial images on the MRI L-spine do not go through this level. There is some possible cord signal change at this level as well. Had a very thorough discussion with her. She has severe progressive myelopathy. Given her debilitating, progressive symptoms further conservative treatments would only delay definitive care and place her at risk of permanent spinal cord injury. I recommended timely decompression. Extensively discussed the risks and benefits of surgery with her. I made it very clear that her risk of perioperative spinal cord injury is much higher than average given her severe cord compression. Will tentatively plan for C5-T1 or T2 posterior decompression with instrumentation and arthrodesis with neuromonitoring and neuronavigation. Will obtain flexion/extension x-rays, a CT C-spine, and bilateral leg venous duplexes in addition to her MR C-spine with contrast and MRI T-spine in preparation for surgery. Her Coumadin will be need to be held perioperatively. Answered all of her questions. She will coordinate an operative date with our coordinator. [email or web address] Not available 02/28/2024 16:50:42 04/26/2024 04/26/2024 Ms. Estrada presen ts today status post C5-T2 PCF with other levels TBD 04/11. No sutures or nasima to remove. Incision healing well. A small amount of dehiscence at the top of the incision. A steri strip was placed for precaution. All questions answered. [email or web address] Not available 04/26/2024 11:34:08 05/24/2024 05/24/2024 Maryam Estrada is a 63-year-old female status post C5-T1 PCF on 04/11/2024 for progressive cervical myelopathy presenting to the clinic for a follow up. Unfortunately, the patient did not have her x-rays performed prior to her appointment today we will have her obtain the x-rays when she leaves. We will have her return for a follow-up visit in 6 weeks with repeat cervical x-rays prior to her appointment. Not available 05/24/2024 15:18:04 07/09/2024 07/09/2024 Maryam Estrada is a 63-year-old female status post C5-T1 PCF on 04/11/2024 for progressive cervical myelopathy who presents to the clinic for a follow-up. Cervical x-rays from today and 05/24/2024 reviewed by myself and Dr. Paulino. Imaging reveals satisfactory hardware placement with no evidence of loosening. We will have the patient return for a follow-up appointment in 3 months with repeat cervical x-rays prior to her appointment. [email or web address] Not available 07/09/2024 13:11:51 Plan of Treatment Reminders Order Date Submit Date Provider Last Modified By Organization Details Last Modified Time Details Appointments MOIZ lira 2024 02:15P Hanh PAULINO MD Not available Not available Not available Lab None record ed. Referral None record ed. Procedures None record ed. Surgeries None record ed. Imaging None record ed. Medication Orders None record ed. Patient TargetsNo targets recorded. Patient InstructionsNo instructions recorded. Reason for Referral None Reported. Results Created Date Observation Date Name Description Value Unit Range Abnormal Flag Note LastModifiedBy Organization Detail LastModifiedTime 03/01/20 24 06/09/2023 MRI, cervi tawanda spine , w/o contr ast No observ ation record ed. [email or web address] Not Available 08:17:34 03/01/20 24 04/13/2023 nerve condu ction study /EMG, upper extre mity (PROC ) No observ ation record ed. BARCODE Not Available 2023 09:49:40 03/25/20 24 03/25/2024 US, duple x, venou s, lower extre mity, compl ete No observ ation record ed. [facility] Cardiology [address] , [place], [address], 08/06/2024 16:05:28 03/25/20 24 03/25/2024 XR, cervi tawanda spine , 4 or [address] [address] Lukas caldwell Name: ZAINA caldwell : [birth year] Lukas caldwell 9 Orderi ng Provid er: NANCY PAULINO EXAM DATE: 2023 EXAM: XR CERVIC AL SPINE AP/LAT /FLEX/ EXT CLINIC AL INFORM ATION: Neck pain. IMAGES PROVID ED: Latera l views of the cervic al spine in flexio n and extens ion. COMPAR ANGELES: None. FINDIN GS: FINDIN GS: Verteb ral body height s are normal . Multip le disc spaces are narrow ed and there is diffus e degene rative endpla te spurri ng. No signif icant sublux ation. No abnorm ality of alignm ent is seen. No instab ility is seen on flexio n or extens ion. No radiog raphic eviden ce of injury is noted. IMPRES DELMA: Modera te diffus e degene rative disc diseas e. No instab ility. Interp reted By: Chris Cifuentes MD Electr onical ly Signed By: Chris Cifuentes MD on 024 3:33 PM [email or web address] [facility]iology [facility] [address] [place] [address], [phone], 08/06/2024 16:05:24 03/25/20 24 03/25/2024 CT, cervi tawanda spine , w/o contr ast [place] [facility] [address] [facility] [place] [address] Patigeorge t Name: ZAINA caldwell : [birth year] Lukas caldwell 9 Orderi ng Provid er: NANCY PAULINO EXAM DATE: 2023 EXAM: CT CERVIC AL WITHOU T CONTRA ST HISTOR Y: 63-yea r-old female with chroni c neck pain. COMPAR ANGELES: Radiog raph of the same date Techni que: 1 mm direct axial slices were obtain ed throug h the cervic al spine. Comput er-gen erated axial, laura l, and sagitt al recons tructi ons are provid ed for interp retati on. FINDIN GS: There is levocu rvatur e of the cervic al spine. There is anteri or listhe sis of C5 on C6. There is no fractu re or pathol ogic intrao sseous lesion . There is modera te to severe anteri or margin al osteop hytic spurri ng. No parasp inous soft tissue abnorm ality is identi fied. The visual ized spinal cord and draw in hand ior fossa of the brain are normal in appear ance. The cranio cervic al juncti on is normal in appear ance. There are modera te degene rative change s at C1-C2. C2-C3: There is a broad- based disc bulge/ protru delma, mild uncove rtebra l spurri ng and mild to modera te facet arthro archie. There is no centra l canal stenos is. There is no neural forami nal stenos is. C3-C4: There is a mild disc bulge and mild endpla te spurri ng. There is severe right and modera te left facet arthro archie. There is mild centra l canal stenos is. There is mild right neural forami nal narrow ing. C4-C5: There is a disc/o steoph yte comple x extend ing into the right neural forame n. There is severe right and mild left facet arthro archie. There is mild centra l canal stenos is. There is severe right neural forami nal narrow ing. C5-C6: There is a diffus e disc/o steoph yte comple x with severe right and mild left facet arthro archie. There is mild/m oderat e centra l canal stenos is. There is severe right and modera te left neural forami nal stenos is. C6-C7: There is a diffus e disc/o steoph yte comple x and modera te facet arthro archie. There is mild/m oderat e centra l canal stenos is. There is severe bilate ral neural forami nal stenos is. C7-T1: There is a diffus e disc/o steoph yte comple x and modera te to severe facet arthro archie. There is minima l centra l canal narrow ing. There is modera te/sev ere bilate ral neural forami nal narrow ing. There are mild degene rative change s from T1-T2 throug h T3-T4 with mild to modera te neural forami nal stenos is. There is a low-at tenuat ion lesion in the left lobe of the thyroi d gland which measur es approx imatel y 9 mm. IMPRES DELMA: 1. There are severe diffus e degene rative change s in the cervic al spine with mild to modera te centra l canal narrow ing and severe neural forami nal narrow ing. Interp reted By: aRkel lentz MD Electr onical ly Signed By: Rakel lentz MD on 024 3:42 PM [email or web address] [facility] Radiology [facility] [address] [facility], [place], [phone], 08/06/2024 16:05:24 03/28/20 24 03/28/2024 MRI, thora cic spine , w/o contr ast [place] [facility] [address] [place] [address] Lukas caldwell Name: ZAIAN caldwell : [birth year] Patigeorge caldwell 9 Orderi ng Provid er: NANCY JANG PAULINO EXAM DATE: 2023 EXAM: MR THORAC IC W/O CONTRA ST HISTOR Y: 63-yea r-old female with loss of balanc e. COMPAR ANGELES: None. FINDIN GS: There is modera te to severe kyphos is of the thorac ic spine. There is mild anteri or listhe sis of T1 on T2, T2 on T3, T3 on T4 and T4-T5. There is no eviden ce of fractu re. There is modera te anteri or margin al osteop hytic spurri ng. No pathol ogic lesion is identi fied in the thorac ic spine. The visual ized spinal cord appear s normal . There are broad- based disc protru sions at T7-T8 and T8-T9. There is mild neural forami nal narrow ing at these levels . There is no centra l canal narrow ing. There are broad- based disc protru sions from T11-T1 2 throug h L1-L2. There is modera te centra l canal stenos is at T11-T1 2. There is modera te right and mild left neural forami nal narrow ing at this level. There are minima l to mild disc bulges in the remain ing levels of the thorac ic spine. There is no centra l canal stenos is or neural forami nal stenos is. There is no parasp inous soft tissue abnorm ality. The parasp inous muscul ature is symmet marcelino. IMPRES DELMA: 1. There are modera te diffus e degene rative change s in the thorac ic spine. There is modera te centra l canal narrow ing at T11-T1 2. Interp reted By: Rakel lentz MD Electr onical ly Signed By: Rakel lentz MD on 024 2:40 PM [facility]iology [facility] [address] [place] [address], [phone], 08/06/2024 16:05:25 03/28/20 24 03/28/2024 MRI, cervi tawanda spine , w/wo contr ast [place] [facility] [address] [place] [address] Lukas caldwell Name: ZAINA caldwell : [birth year] Patigeorge t 9 Orderi ng Provid er: NANCY PAULINO EXAM DATE: 2023 EXAM: MR CERVIC AL W/WO CONTRA ST HISTOR Y: 63-yea r-old female with loss of balanc e and prior remova l of a cyst from her neck. COMPAR ANGELES: None. The patien t did not requir e sedati on for this exam. A baseli ne serum creati nine with eGFR was obtain ed prior to inject ion of contra st medium due to the patien ts risk factor s for MISSY. Calcul ated eGFR at time of exam was [id number] FINDIN GS: There is kyphos is of the cervic al spine. There is anteri or listhe sis of C5 on C6. There is mild anteri or listhe sis of C4 on C5 There is no fractu re or pathol ogic intrao sseous lesion . There is modera te anteri or margin al osteop hytic spurri ng. No parasp inous soft tissue abnorm ality is identi fied. The visual ized spinal cord and draw in hand ior fossa of the brain are normal in appear ance. The cranio cervic al juncti on is normal in appear ance. There are mild degene rative change s at C1-C2. C2-C3: There is a broad- based disc protru delma and mild endpla te spurri ng. There is no centra l canal stenos is. There is minima l neural forami nal stenos is. C3-C4: There is mild endpla te spurri ng, a minima l disc bulge and mild to modera te facet arthro archie. There is mild centra l canal stenos is. There is modera te left and mild right neural forami nal narrow ing. C4-C5: There is a broad- based disc protru delma and right greate r than left endpla te spurri ng. There is mild to modera te facet arthro archie. There is mild/m oderat e centra l canal stenos is. There is severe right and mild to modera te left neural forami nal narrow ing. C5-C6: There is a broad- based disc protru delma and modera te endpla te spurri ng. There is severe facet arthro archie. There is severe centra l canal stenos is. There is severe bilate ral neural forami nal stenos is. C6-C7: There is a broad- based disc protru delma and modera te endpla te spurri ng. There is modera te centra l canal stenos is. There is severe bilate ral neural forami nal stenos is. C7-T1: There is a broad- based disc protru delma and endpla te spurri ng. There is modera te centra l canal narrow ing. There is modera te to severe neural forami nal narrow ing. No discre te soft tissue mass is identi fied. After intrav enous admini strati on of [address] ([facility] 36794- [id number] 2), there is no abnorm al enhanc ement in the cervic al spine. IMPRES DELMA: 1. There is severe centra l canal stenos is and severe bilate ral neural forami nal stenos is at C5-C6. 2. There is modera te centra l canal narrow ing and modera te to severe neural forami nal stenos is at C6-C7 and C7-T1. 3. There is mild to modera te centra l canal narrow ing at C3-C4 and C4-C5. There is severe right neural forami nal narrow ing at C4-C5, and modera te left neural forami nal narrow ing at C3-C4 and C4-C5. 4. This study is severe ly limite d by lukas pino in all imagin g sequen aimee. Interp reted By: Rakel lentz MD Electr onical ly Signed By: Rakel lentz MD on 024 3:21 PM [email or web address] [facility] Radiology [facility] [address] [place], [address], 08/06/2024 16:05:25 05/24/19 25 05/24/2024 XR, cervi tawanda spine , 2 or 3 view [place] [facility] [address] [place] [address] [place] [address] Lukas caldwell Name: ZAINA caldwell : [birth year] Lukas caldwell 9 Orderi ng Provid er: [facility] EXAM DATE: 2024 EXAM: XR CERVIC AL AP/LAT CLINIC AL INFORM ATION: Follow up of recent multil evel spine fusion . IMAGES PROVID ED: AP, latera l, open mouth and submen jordyn views of the cervic al spine COMPAR ANGELES: Preope rative cervic al spine 12-24. FINDIN GS AND IMPRES DELMA: The teeen t has had multil evel elise ctomie s and draw in hand ior fusion with draw in hand ior plates and pedicl e screws extend ing from C5 to T1. The alignm ent appear s satisf actory and no compli cating featur es are seen when compar ed to the preope rative exam. Interp reted By: Car alejo MD Electr onical ly Signed By: Car alejo MD on 025 4:39 PM [email or web address] [facility] Radiology [facility] [address] [place] [address], [phone], 08/06/2024 15:57:51 07/10/19 25 07/09/2024 XR, cervi tawanda spine , 2 or 3 view [place] [facility] [address] [place] [address] [place] [address] Lukas caldwell Name: ZAINA caldwell : [birth year] Lukas caldwell 9 Orderi ng Provid er: NANYC SOARESTESFAYE PAULINO EXAM DATE: 2024 EXAM: XR CERVIC AL AP/LAT CLINIC AL INFORM ATION: Follow -up of multil evel draw in hand ior fusion . IMAGES PROVID ED: AP, latera l, open mouth and submen jordyn views of the cervic al spine COMPAR ANGELES: Cervic al spine FINDIN GS AND IMPRES DELMA: The patien t has had multil evel elise ctomie s and draw in hand ior fusion with draw in hand ior plates and pedicl e screws extend ing from C5 to T1. The alignm ent appear s satisf actory and unchan ged from 025. No compli cating featur es are seen. Interp reted By: Car alejo MD Electr onical ly Signed By: Car alejo MD on 12:54 PM [email or web address] [facility]iology [facility] [address] [place], [address], 08/06/2024 15:57:51 Result Notes None recorded. 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 Procedures Surgical History Date Name Laterality Status Provider Name and Address Organization Details Recorded Time 04/24/19 15 primary foraminotomy of cervical spine completed [facility] 07/05/2022 16:06:41 04/24/19 12 total knee replacement completed [facility] 07/05/2022 16:06:08 04/24/19 08 umbilical hernioplasty completed [facility] 07/05/2022 16:05:57 04/24/19 07 cholecystectomy completed [facility] 07/05/2022 16:05:47 04/24/19 03 Gastric bypass for obesity completed [facility] 07/05/2022 16:05:38 04/24/19 02 hysterectomy completed [facility] 07/05/2022 16:05:27 04/24/19 01 back fusion completed [facility] 07/05/2022 16:05:18 04/24/19 00 oophorectomy completed [facility] 07/05/2022 16:05:07 04/24/18 92 Carpal tunnel surgery completed [facility] 07/05/2022 16:04:57 04/24/18 91 ligation of fallopian tube completed [facility] 07/05/2022 16:04:45 04/24/18 86 delivery completed [facility] 07/05/2022 16:04:36 Imaging Results None recorded. Procedure Notes None recorded. Medical Equipment None Reported. Allergies Allergen ID Allergen Name Allergen Category Reaction Reaction Severity Criticality Documentation Date Start Date Code Code System Note Provider Name and Address Organization Details Recorded Time 189365 Parafon Forte DSC medicatio n Not available Not available Not available 03/17/20162006 96701 8 RxNorm Comme nt: Creat ed By: Carol Tejadaa gabriel Date: 2006 3:47: 24 PM; Not Available [facility] 6 10:31:25 681953 codeine medicatio n Not available Not available Not available 03/17/20162006 2670 RxNorm Comme nt: Creat ed By: Carol MarteCrea gabriel Date: 2006 3:45: 12 PM; Not Available [facility] 6 10:51:22 516477 Cipro medicatio n Not available Not available Not available 03/17/2016200656 3 RxNorm Comme nt: Creat ed By: Carol Tejadaa gabriel Date: 2006 3:43: 16 PM; Not Available [facility] 6 11:31:27 346503 guaifenes in / phenyleph rine medicatio n Not available Not available Not available 03/17/20162006 98654 7 RxNorm Comme nt: Creat ed By: Carol MarteCrea gabriel Date: 2006 3:45: 51 PM; Not Available [facility] 6 11:31:27 401040 Robaxin medicatio n Not available Not available Not available 03/17/20162006 94289 5 RxNorm Comme nt: Creat ed By: Carol Aldrich ;Crea gabriel Date: 2006 3:47: 38 PM; Not Available [facility] 6 11:31:27 850449 Lipitor medicatio n Not available Not available Not available 03/17/20162006 77921 5 RxNorm Comme nt: Creat ed By: Carol MarteCrea gabriel Date: 2006 3:46: 55 PM; Not Available [facility] 6 11:31:27 996969 Lovenox medicatio n Not available Not available Not available 03/17/20162006 81587 6 RxNorm Comme nt: Creat ed By: Carol MarteCrea gabriel Date: 2006 3:48: 10 PM; Not Available [facility] 6 11:31:27 441317 homatropi ne / hydrocodo ne medicatio n Not available Not available Not available 03/17/20162011 53847 4 RxNorm Comme nt: Creat ed By: Samson oneal;Mirlande boland d Date: 012 9:00: 12 AM; Not Available [facility] 6 11:42:53 253737 aspirin medicatio n Not available Not available Not available 03/17/20162006 1191 RxNorm Comme nt: Creat ed By: Carol Aldrich ;Crea gabriel Date: 2006 3:41: 59 PM; Not Available [facility] 6 11:42:53 352229 Talwin medicatio n Not available Not available Not available 03/17/20162006 8002 RxNorm Comme nt: Creat ed By: Carol MarteCrea gabriel Date: 2006 3:47: 52 PM; Not Available [facility] 6 11:42:53 876846 Lincocin medicatio n Not available Not available Not available 03/18/20162006 06991 1 RxNorm Comme nt: Creat ed By: Carol Aldrich ;Crea gabriel Date: 2006 3:46: 38 PM; Not Available [facility] 6 04:04:18 674985 Product containin g penicilli n (product) medicatio n Not available Not available Not available 03/18/20162006 73445 8001 SNOMED Comme nt: Creat ed By: Carol MarteCrea gabriel Date: 2006 3:47: 06 PM; Not Available [facility] 6 04:04:18 458295 Cleocin medicatio n Not available Not available Not available 03/18/2016201186 2 RxNorm Comme nt: Creat ed By: Samson moss Date: 012 8:59: 23 AM; Not Available [facility] 6 04:04:18 074757 morphine sulfate medicatio n Not available Not available Not available 03/18/20162011 07402 RxNorm Comme nt: Creat ed By: Lakeisha navarro Date: 2011 9:33: 37 AM; Not Available [facility] 6 04:04:53 892871 chlorphen iramine / pseudoeph edrine medicatio n Not available Not available Not available 03/18/20162006 16197 5 RxNorm Comme nt: Creat ed By: Carol Tejadaa gabriel Date: 2006 3:45: 29 PM; Not Available [facility] 6 04:04:53 966992 erythromy missy estolate medicatio n Not available Not available Not available 03/18/20162006 4055 RxNorm Comme nt: Creat ed By: Carol rios Date: 2006 3:46: 07 PM; Not Available [facility] 6 07:41:36 088481 clindamyc in Not available Not available Not available Not available 02/28/2024 2582 RxNorm Elinor Roxana null, [facility] 4 15:12:41 681506 tetracycl ine medicatio n Not available Not available Not available 02/28/2024 96180 RxNorm Elinor Roxana null, [facility] 4 15:15:29 326258 morphine medicatio n anaphylax is Not available Not available 04/15/20242023 7052 RxNorm Sofia Mehta null, [facility] 4 09:30:54 424489 propoxyph kenny medicatio n anaphylax is Not available Not available 04/15/20242016 8785 RxNorm Sofia Mehta null, [facility] 4 09:30:54 513253 pentazoci ne Not available anaphylax is Not available Not available 04/15/20242016 8001 RxNorm Sofia Mehta null, [facility] 4 09:30:54 219374 methocarb scottie medicatio n anaphylax is Not available Not available 04/15/20242023 6845 RxNorm Sofia Mehta null, [facility] 4 09:30:54 943770 chlorzoxa zone medicatio n anaphylax is Not available Not available 04/15/20242006 2410 RxNorm Sofia Mehta null, [facility] 4 09:30:54 005236 erythromy missy medicatio n anaphylax is Not available Not available 04/15/20242006 4053 RxNorm Sofia Mehta null, [facility] 4 09:30:54 369432 tramadol medicatio n anaphylax is Not available Not available 04/15/20242023 74671 [facility] 4 09:30:54 478434 brompheni ramine Not available anaphylax is Not available Not available 04/15/20242016 1767 RxNorm [facility] 4 09:30:54 194621 atorvasta tin medicatio n itching Not available Not available 04/15/20242006 03756 RxNorm [facility] 4 09:30:54 490896 codeine sulfate medicatio n anaphylax is Not available Not available 04/15/20242016 49255 RxNorm [facility] 4 09:30:54 109313 clindamyc in hydrochlo ride medicatio n anaphylax is Not available Not available 04/15/20242016 07693 RxNorm [facility] 4 09:30:54 422417 enoxapari n sodium medicatio n rash Not available Not available 04/15/20242016 55511 5 RxNorm Sofia Mehta [facility] [id number] apremilas t medicatio n diarrhea Not available Not available 04/15/20242022 [id number] 27 RxNorm Sofia Mehta [facility] 4 09:[facility]54 Medications Name Sig Start Date Stop Date Status Note LastModified by Organization Details LastModified Time cmp dex/dip/l id/mal/ny s millilite rs SWISH AND SPIT 15ML BY MOUTH EVERY 2 HOURS NEEDED 07/05 completed Not Available Not Available Not Available cyclobenz aprine 10 mg tablet active Not Available Not Available No t Available pramipexo le 1 mg tablet active Not Available Not Available Not Available furosemid e 40 mg tablet active Not Available Not Available Not Available clotrimaz ole 10 mg yoseph 07/05 completed Not Available Not Available Not Available nystatin 100,000 unit/mL oral suspensio n 07/05 completed Not Available Not Available Not Available prednison e 10 mg tablet active Not Available Not Available Not Available bumetanid e 2 mg tablet active Not Available Not Available Not Available BD Luer-Pedro Syringe 3 mL 25 x 5/8 07/05 completed Not Available Not Available Not Available Multiple Vitamin capsule Daily 07/05 completed Duration : 30 days;Kota quency: daily;Me dication Descript ion: multivit nicholson; Dosage:1 ; Route:or al; refills: 3; Quantity :100 capsule Not Available Not Available Not Available fluconazo le 200 mg tablet 07/05 completed Not Available Not Available Not Available famotidin e 40 mg tablet active Not Available Not Available Not Available prednison e 20 mg tablet active Not Available Not Available Not Available alendrona te 70 mg tablet active Not Available Not Available Not Available gabapenti n 400 mg capsule active Not Available Not Available Not Available prednison e 5 mg tablet 07/05 completed Not Available Not Available Not Available leflunomi de 10 mg tablet 07/05 completed Not Available Not Available Not Available acyclovir 400 mg tablet active Not Available Not Available Not Available Darryl-on Loperamid e HCl 2 mg tablet Take by oral route. active Not Available Not Available No t Available ciproflox acin 500 mg tablet 02/27 completed Not Available Not Available Not Available sulfameth oxazole 800 mg-trimet hoprim 160 mg tablet active Not Available Not Available Not Available leflunomi de 20 mg tablet Take 1 tablet every day by oral route. active Not Available Not Available No t Available warfarin 4 mg tablet Take 2 tablets every day by oral route. active Not Available Not Available No t Available warfarin 3 mg tablet active Not Available Not Available Not Available dexametha sone 0.5 mg/5 mL oral elixir 07/05 completed Not Available Not Available Not Available prednison e 10 mg tablets in a dose pack 07/05 completed Not Available Not Available Not Available pramipexo le 0.5 mg tablet Take 1 tablet 3 times a day by oral route. active Not Available Not Available No t Available Celebrex 200 mg capsule Take 1 capsule every day by oral route. active Not Available Not Available No t Available meloxicam 7.5 mg tablet active Not Available Not Available Not Available potassium chloride ER 20 mEq tablet,ex tended release(p art/cryst ) active Not Available Not Available Not Available amitripty line 25 mg tablet Take 1 tablet every day by oral route. active Not Available Not Available No t Available baclofen 10 mg tablet active Not Available Not Available Not Available cyanocoba merlin (vit B-12) 1,000 mcg/mL injection solution 07/05 completed Not Available Not Available Not Available clotrimaz ole-betam ethasone 1 %-0.05 % topical cream APPLY TO THE AFFECTED AND SURROUND ING AREAS OF SKIN BY TOPICAL ROUTE 2 TIMES PER DAY IN THE MORNING AND EVENING FOR 2 WEEKS 2022 active Not Available Not Available Not Avai lable nystatin- triamcino lone 100,000 unit/g-0. 1 % topical cream active Not Available Not Available Not Available gabapenti n 300 mg capsule active Not Available Not Available Not Available omeprazol e 20 mg capsule,d elayed release Take 1 capsule every day by oral route. active Not Available Not Available No t Available folic acid 1 mg tablet active Not Available Not Available Not Available pravastat in 20 mg tablet active Not Available Not Available Not Available hydrochlo rothiazid e 25 mg tablet active Not Available Not Available Not Available mupirocin 2 % topical ointment active Not Available Not Available Not Available furosemid e 20 mg tablet 02/27 completed Not Available Not Available Not Available warfarin 1 mg tablet active Not Available Not Available Not Available levofloxa missy 500 mg tablet active Not Available Not Available No t Available oxycodone -acetamin ophen 7.5 mg-325 mg tablet Take 1 tablet every 6 hours by oral route as needed. active Not Available Not Available No t Available methylpre dnisolone 4 mg tablets in a dose pack active Not Available Not Available Not Available albuterol sulfate HFA 90 mcg/actua tion aerosol inhaler active Not Available Not Available Not Available Vitamin D2 1,250 mcg (50,000 unit) capsule 07/05 completed Not Available Not Available Not Available Coumadin 10 mg tablet Daily 07/05 completed Frequenc y: daily;Me dication Descript ion: warfarin ; Dosage:1 ; Route:or al; refills: 0 Not Available Not Available Not Available Lopressor HCT 100 mg-25 mg tablet Take 1 tablet every day by oral route. active Not Available Not Available No t Available diazepam 5 mg tablet active Not Available Not Available Not Available vitamin M51-hclxb acid injection solution Take by injectio n route. active Not Available Not Available No t Available Crestor 20 mg tablet Take 1 tablet every day by oral route. active Not Available Not Available No t Available potassium chloride ER 10 mEq tablet,ex tended release(p art/cryst ) active Not Available Not Available Not Available metoprolo l tartrate 25 mg tablet active Not Available Not Available Not Available nitrofura ntoin monohydra te/macroc rystals 100 mg capsule active Not Available Not Available Not Available duloxetin e 60 mg capsule,d elayed release Take 1 capsule every day by oral route. active Not Available Not Available No t Available Elavil Two times a day 07/05 completed Frequenc y: bid;Medi cation Descript ion: amitript yline; Dosage:1 ; refills: 0 Not Available Not Available Not Available Lopressor Two times a day 07/05 completed Frequenc y: bid;Medi cation Descript ion: metoprol ol; Dosage:1 ; refills: 0 Not Available Not Available Not Available Neurontin Bedtime 07/05 completed Frequenc y: hs;Medic ation Descript ion: gabapent in; Dosage:1 ; Route:or al; refills: 0 Not Available Not Available Not Available Crestor 07/05 completed Medicati on Descript ion: rosuvast atin; refills: 0 Not Available Not Available Not Available D3-50 50,000 unit capsule Take 1 capsule every week by oral route. active Not Available Not Available No t Available diclofena c 1 % topical gel active Not Available Not Available Not Available Savella 50 mg tablet Two times a day 07/05 completed Frequenc y: bid;Medi cation Descript ion: milnacip ran; Dosage:1 ; Route:or al; refills: 0 Not Available Not Available Not Available Prolia 60 mg/mL subcutane ous syringe 07/05 completed Not Available Not Available Not Available Vitals Date Recorded Body height Body mass index (BMI) Body weight Systolic blood pressure Diastolic blood pressure Provider Name and Address Organization Details Last Updated DateTime 05/24/2024 170.18 cm 31.3 kg/m2 31052.4 7 g 114 mm[Hg] 74 mm[Hg] [facility] 14:29:37 Date Recorded Body height Body mass index (BMI) Body weight Systolic blood pressure Diastolic blood pressure Provider Name and Address Organization Details Last Updated DateTime 07/09/2024 170.18 cm 31.3 kg/m2 87762.47 g 120 mm[Hg] 72 mm[Hg] Elinor Escobedoholz [facility] 12:54:35 Date Recorded Body height Body mass index (BMI) Body weight Provider Name and Address Organization Details Last Updated DateTime 02/28/2024 170.18 cm 31.3 kg/m2 17383.47 g [facility] 02/28/2024 15:01:13 Social History None recorded. Functional Status Question Answer Note LastModified by Organization D etails LastModified Time What is your level of alcohol consumption? None [email or web address] Information not available 07/05/2022 Mental Status None recorded. Family History Relationship Description Onset Age of this Age Resolved Age Notes LastModified by Organization Details LastModified Time Mother Complication of anesthesia [email or web address] Not available 07/05 16:03:28 Mother Heart disease Not available 2022 16:03:44 Mother Hypertensive disorder [email or web address] Not available 2022 16:03:57 Mother Diabetes mellitus [email or web address] Not available 2022 16:04:11 Brother Heart disease [email or web address] Not available 2022 16:03:44 Brother Hypertensive disorder [email or web address] Not available 2022 16:03:57 Brother Diabetes mellitus [email or web address] Not available 2022 16:04:11 Brother Kidney disease Not available 2022 16:04:19 Father Heart disease [email or web address] Not available 2022 16:03:44 Father Hypertensive disorder [email or web address] Not available 2022 16:03:57 Father Diabetes mellitus [email or web address] Not available 2022 16:04:10 Medical History Condition Response TENS Unit for current problem N Traction for current problem N Massage Therapy for current problem N Other Y Gout N Kidney Stones N Hyperthyroidism N Heart Arrhythmia N Narcotic Pain Medication for current pro blem N Emphysema N Esophagus/swallowing troubles N Depression Y Lung Disease N COPD Y Hypothyroidism N Glaucoma N Injections for current problem N Anesthesia Complications N Deep Vein Thrombosis Y Anxiety Disorder Y Arthritis Y Hearing Loss N Acid Reflux (GERD) Y Cancer N Stroke N Hoarseness N Alcohol Overuse/Alcohol Abuse N High Cholesterol Y Snoring problems N Liver Disease N Dialysis N Fibromyalgia Y Headaches N Kidney Disease N Allergies/Hayfever N Heart Problems N Neuro-modulating Drugs for current probl em N Mental handicap N Ear or Hearing Problems N Black Lung N Gallbladder Disease N Migraines N Thyroid Problems N Steroid Pack for current problem N NSAID Use N Goiter N Osteoporosis/Osteopenia Y Anemia Y Immune System Disorder N Chest Pain N Stomach trouble N Ulcers N Heart Attack ([place]) N Mental Illness N Diabetes N Rheumatic Fever N Bleeding Disorder Y Tuberculosis N Genetic Disorder N AIDS/HIV N Kidney Failure N Hyperlipidemia N Chiropractor treatment for current probl em N Ultrasound Treatment for current problem N Asthma N Epilepsy/Seizures N Sleep Apnea N Thyroid Disorder N Sleep Disorder N Physical Therapy Treatments for current problem N Hepatitis N Heart Disease N Pulmonary Embolism N Hypertension Y Gynecological HistoryNo gynecological history recorded. 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.5 w/ diminished taste buds Osteoarthritis 973405573 M19.90 Anemia 979986199 D64.9 does b12 injections Painful mouth 689223618 K13.79 Angular cheilitis 075191 005 K13.0 Bhavani [id number] NANCY PAULINO MD [facility] [address] [place] [address] 02/28/2024 13:41:03 02/29/2024 04:57:01 Cervical myelopathy 277498247 G95.9 [id number] NANCY PAULINO MD SURGERY SCHEDULE [address] [id number] 04/18/2024 13:50:25 04/23/2024 15:18:06 [id number] NANCY PAULINO MD [facility] [address] [place] [address] 04/26/2024 10:48:59 04/30/2024 04:06:32 [id number] EVGENY ALLRED PA-C [facility] [address] [place] [address] 05/24/2024 14:11:51 05/27/2024 12:38:35 Cervical myelopathy 010369237 G95.9 [id number] EVGENY ALLRED PA-C [facility] [address] [place] [address] 07/09/2024 12:43:06 07/10/2024 06:36:26 Cervical myelopathy 480343080 G95.9 Health Concerns Section Related Observation LastModified by Organization Detai ls LastModified Time None Recorded Concern Status LastModified by Organization Details LastModified Time None Recorded Advance Directives Directive None Recorded Payers Insurance Date Sequence Insurance Name Policy Number Policy Christianson Covered Member ID Christianson Member ID Guarantor Name 07/06/2024 1 [place] [employer] [employer] [id number] Zaina Estrada [id number] Zaina Estrada Notes Date Note Type Note Provider Name and Address Organization Details Recorded Time 02/28/2024 text/html Maryam Estrada (So'zb ee) is a 63-year-old woman with osteoporosis and 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 Belle many years ago who presents with progressive cervical myelopathy. Her symptoms began approximately 10 months ago when she began having severe progressive imbalance with frequent falls. 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 She has been having to use a walker for about 10 months. She is unable to walk or stand unassisted anymore. 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 She has been very frustrated that her dexterity has worsened as well and she frequently fumbles with her hands. No numbness. Occasionally has pain along the right arm in the C8 distribution. Had several episodes of incontinence several months ago and has been using a pad. Has not had any further bladder issues lately. She has known osteoporosis treated with Prolia. NANCY PAULINO MD [facility] [place], [address], [facility] 02/28/2024 16:50:54 05/24/2024 text/html Maryam Estrada is a 63-year-old female status post C5-T1 PCF on 04/11/2024 for progressive cervical myelopathy presenting to the clinic for a follow up. She advises that she is doing very well and has noticed improvement in her strength and balance. She is also able to control her hands better. She is now able to walk with a walker. She is quite pleased with her postoperative progress so far. She advises that she will occasionally experience soreness in the posterior aspect of her neck and bilateral shoulders[place], [address], [facility] 05/24/2024 15:18:29 07/09/2024 text/html Maryam Estrada is a 63-year-old female status post C5-T1 PCF on 04/11/2024 for progressive cervical myelopathy who presents to the clinic for a follow-up. She continues to do very well. 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 However, she advises that she still drops heavier objects. She also still experiences soreness in her neck and bilateral shoulders at times. She is quite pleased with her postoperative progress at this time. [place], [address], [place] [facility] 07/09/2024 13:29:09 OBGyn Episode No OBEpisode recorded.
--- OUTSIDE RECORDS SUMMARY | 2024-09-19 12:46 | XMS_ITS | Data Portability ---
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 Plan of Treatment Reminders Order Date Submit Date Provider Last Modified By Organization Details Last Modified Time Details Appointments None recorded. Lab C-reactive protein, quantitativ e, serum or plasma 2022 023 [facility], [address], [address], [place], [address], 3 06:40:30 CBC 2022 023 [facility], [address], [address], [place], [address], 3 06:40:30 CMP, serum or plasma 2022 023 [facility], [address], [address], [place], [address], 3 06:40:30 ESR (erythrocyt e sedimentati on rate), blood 2022 023 [email or web address] [facility], [address], [address], [place], [address], 3 06:40:30 culture, wound 2022 023 [email or web address] [facility], [address], [address], [place], [address], 3 06:40:30 Referral None recorded. Procedures None recorded. Surgeries None recorded. Imaging None recorded. Medication Orders None recorded. Patient TargetsNo targets recorded. Patient InstructionsNo instructions recorded. Reason for Referral None Reported. Results Created Date Observation Date Name Description Value Unit Range Abnormal Flag Note LastModifiedBy Organization Detail LastModifiedTime 04/14/20 23 04/14/2023 COMP. METAB OLIC PANEL (14) glucose 88 mg/dL 70-99 Not Available [facility] ([facility]) [address] [facility], [place], [address], 04/22/2023 15:08:22 04/14/20 23 04/14/2023 COMP. METAB OLIC PANEL (14) BUN 13 mg/dL 8-27 Not Available [facility] ([facility]) [address] [place], [address], 04/22/2023 15:08:22 04/14/20 23 04/14/2023 COMP. METAB OLIC PANEL (14) creatinine 0.74 mg/dL 0.57-1 .00 Not Available [facility] ([facility]) [address] [facility], [place], [address], 04/22/2023 15:08:22 04/14/20 23 04/14/2023 COMP. METAB OLIC PANEL (14) eGFR 91 mL/mi n/1.7 3 >59 Not Available [facility] ([facility]) [address] [place], [address], 04/22/2023 15:08:22 04/14/20 23 04/14/2023 COMP. METAB OLIC PANEL (14) BUN/creatini ne ratio 04-20 Not Available [facility] ([facility]) [address] [place], [address], 04/22/2023 15:08:22 04/14/20 23 04/14/2023 COMP. METAB OLIC PANEL (14) sodium 140 mmol/ L 134-14 4 Not Available [facility] ([facility]) [address] [facility] [place], [address], 04/22/2023 15:08:22 04/14/20 23 04/14/2023 COMP. METAB OLIC PANEL (14) potassium 4.6 mmol/ L 3.5-5. 2 Not Available [facility] ([facility]) [address] [facility] [place], [address], 04/22/2023 15:08:22 04/14/20 23 04/14/2023 COMP. METAB OLIC PANEL (14) chloride 102 mmol/ L 96-106 Not Available [facility] ([facility]) [address] [facility] [place], [address], 04/22/2023 15:08:22 04/14/20 23 04/14/2023 COMP. METAB OLIC PANEL (14) carbon dioxide, total 26 mmol/ L 20-29 Not Available [facility] ([facility]) [address] [facility] [place], [address], 04/22/2023 15:08:22 04/14/20 23 04/14/2023 COMP. METAB OLIC PANEL (14) calcium 9.0 mg/dL 8.7-10 .3 Not Available [facility] ([facility]) [address] [facility] [place], [address], 04/22/2023 15:08:22 04/14/20 23 04/14/2023 COMP. METAB OLIC PANEL (14) protein, total 6.4 g/dL 6.0-8. 5 Not Available [facility] ([facility]) [address] [facility] [place], [address], 04/22/2023 15:08:22 04/14/20 23 04/14/2023 COMP. METAB OLIC PANEL (14) albumin 4.1 g/dL 3.9-4. 9 Not Available [facility] ([facility]) [address] [place], [address], 04/22/2023 15:08:22 04/14/20 23 04/14/2023 COMP. METAB OLIC PANEL (14) globulin, total 2.3 g/dL 1.5-4. 5 Not Available [facility] ([facility]) [address] [place], [address], 04/22/2023 15:08:22 04/14/20 23 04/14/2023 COMP. METAB OLIC PANEL (14) A/G ratio 1.8 1.2-2. 2 Not Available [facility] ([facility]) [address] [facility] [place], [address], 04/22/2023 15:08:22 04/14/20 23 04/14/2023 COMP. METAB OLIC PANEL (14) bilirubin, total <0.2 mg/dL 0.0-1. 2 Not Available [facility] ([facility] [address] [facility] [place] [address], 04/22/2023 15:08:22 04/14/20 23 04/14/2023 COMP. METAB OLIC PANEL (14) alkaline phosphatase 72 IU/L 44-121 Not Available [facility] ([facility]) [address] [facility] [place], [address], 04/22/2023 15:08:22 04/14/20 23 04/14/2023 COMP. METAB OLIC PANEL (14) AST (SGOT) 28 IU/L 0-40 Not Available [facility] ([facility]) [address] [facility] [place], [address], 04/22/2023 15:08:22 04/14/20 23 04/14/2023 COMP. METAB OLIC PANEL (14) ALT (SGPT) 26 IU/L 0-32 Not Available [facility] ([facility]) [address] [facility], [place], [address], 04/22/2023 15:08:22 04/14/20 23 04/14/2023 CBC, PLATE LET, NO DIFFE RENTI AL WBC 5.2 x10e3 /uL 3.4-10 .8 Not Available [facility] ([facility]) [address] [facility], [place], [address], 04/22/2023 15:08:23 04/14/20 23 04/14/2023 CBC, PLATE LET, NO DIFFE RENTI AL RBC 3.83 x10e6 /uL 3.77-5 .28 Not Available [facility] ([facility]) [address] [facility], [place], [address], 04/22/2023 15:08:23 04/14/20 23 04/14/2023 CBC, PLATE LET, NO DIFFE RENTI AL hemoglobin 11.9 g/dL 11.1-1 5.9 Not Available [facility] ([facility]) [address] [facility], [place], [address], 04/22/2023 15:08:23 04/14/20 23 04/14/2023 CBC, PLATE LET, NO DIFFE RENTI AL hematocrit 37.2 % 34.0-4 6.6 Not Available [facility] ([facility]) [address] [facility], [place], [address], 04/22/2023 15:08:23 04/14/20 23 04/14/2023 CBC, PLATE LET, NO DIFFE RENTI AL MCV 97 fL 79-97 Not Available [facility] ([facility]) [address] [facility], [place], [address], 04/22/2023 15:08:23 04/14/20 23 04/14/2023 CBC, PLATE LET, NO DIFFE RENTI AL MCH 31.1 pg 26.6-3 3.0 Not Available [facility] ([facility]) [address] [facility], [place], [address], 04/22/2023 15:08:23 04/14/20 23 04/14/2023 CBC, PLATE LET, NO DIFFE RENTI AL MCHC 32.0 g/dL 31.5-3 5.7 Not Available [facility] ([facility]) [address] [facility], [place], [address], 04/22/2023 15:08:23 04/14/20 23 04/14/2023 CBC, PLATE LET, NO DIFFE RENTI AL RDW 13.0 % 11.7-1 5.4 Not Available [facility] ([facility]) [address] [facility], [place], [address], 04/22/2023 15:08:23 04/14/20 23 04/14/2023 CBC, PLATE LET, NO DIFFE RENTI AL platelets 255 x10e3 /uL 150-45 0 Not Available [facility] ([facility]) [address] [facility], [place], [address], 04/22/2023 15:08:23 04/14/20 23 04/14/2023 CBC, PLATE LET, NO DIFFE RENTI AL 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 Not Available [facility] ([facility]) [address] [facility], [place], [address], 04/22/2023 15:08:23 04/14/20 23 04/19/2023 ANAER OBIC AND AEROB IC CULTU RE anaerobic culture FINAL REPORT abnormal Not Available [facility] ([facility]) [address] [facility], [place], [address], 04/22/2023 15:08:24 04/14/20 23 04/19/2023 ANAER OBIC AND AEROB IC CULTU RE result 1 BACTER OIDES OVATUS abnormal Heavy growt h Navneet es at [facility] rp have confi rmed the lewis kenney ns of other s who have demon strat ed that Bacte roide s fragi lis group are jaziel mckeon ptibl e to Cefox itin, Chlor amphe trey , and Metro nidaz ole and are usual ly resis tant to Penic illin , and varia kylee in resis tance to Clind amyci n. Not Available [facility] ([facility]) [address] [facility], [place], [address], 04/22/2023 15:08:24 04/14/20 23 04/19/2023 ANAER OBIC AND AEROB IC CULTU RE result 2 PREVOT TO SPECIE S abnormal Heavy growt h Studi es at [facility] have confi rmed the obser vatio ns of other s who have demon strat ed that Prevo tella , Porph yromo deena and Bacte roide s speci es other than Bacte roide s fragi lis group are routi areln susce ptibl e to Cefox itin, Chlor amphe trey , and Metro nidaz ole and are usual ly resis tant to Penic illin . Not Available [facility] ([facility]) [address] [facility], [place], [address], 04/22/2023 15:08:24 04/14/20 23 04/22/2023 ANAER OBIC AND AEROB IC CULTU RE aerobic culture FINAL REPORT abnormal Not Available [facility] ([facility]) [address] [facility], [place], [address], 04/22/2023 15:08:24 04/14/20 23 04/22/2023 ANAER OBIC AND AEROB IC CULTU RE result 1 COMMEN T abnormal Esche rachel a coli, ident ified by an autom ated bioch emica l syste m. Heavy growt h Not Available [facility] ([facility]) [address] [facility], [place], [address], 04/22/2023 15:08:24 04/14/20 23 04/22/2023 ANAER OBIC AND AEROB IC CULTU RE antimicrobia l susceptibili ty COMMEN T S = Susce ptibl e; I = Inter media te; R = Resis tant P = Posit jas; N = Negat jas MICS are expre ssed in micro grams per mL Antib iotic RSLT# 1 RSLT# 2 RSLT# 3 RSLT# 4 Amoxi cilli n/Cla vulan ic Acid S Ampic illin R Cefep alma S Ceftr iaxon e S Cefur oxime S Cipro floxa missy R Ertap enem S Genta micin R Imipe nem S Levof loxac in R Merop enem S Piper acill in/Ta zobac trinidad S Tetra cycli ne R Tobra mycin I Trime thopr im/Ayala lfa R Not Available [facility] ([facility]) [address] [place], [address], 04/22/2023 15:08:24 04/14/20 23 04/14/2023 SEDIM ENTAT ION RATE- WESTE RGREN sedimentatio n rate-westerg iban 51 mm/HR 0-40 above high normal Not Available [facility] ([facility]) [address] [place], [address], 04/22/2023 15:08:25 04/14/20 23 04/14/2023 C-BRANNON CTIVE PROTE IN, QUANT C-reactive protein, quant <1 mg/L 0-10 Not Available [facility] ([facility]) [address] [place], [address], 04/22/2023 15:08:26 Result Notes None recorded. Medical Equipment None Reported. Allergies Allergen ID Allergen Name Allergen Category Reaction Reaction Severity Criticality Documentation Date Start Date Code Code System Note Provider Name and Address Organization Details Recorded Time 806130 aspirin medicatio n Not available Not available Not available 04/13/2023 1191 RxNorm NILSON Roque [facility] 3 10:53:24 497054 chlorphen iramine medicatio n Not available Not available Not available 04/13/2023 2400 RxNorm NILSON Roque [facility] 3 10:53:48 736052 Cipro medicatio n Not available Not available Not available 04/13/2023 36224 3 RxNorm Afshan Kateryna null, [place] - [facility] - [place] & [place] 3 10:53:54 [id number] clindamyc in Not available Not available Not available Not available 04/13/2023 2582 RxNorm Afshan Kateryna null, [place] [facility] - [place] & [place] 3 10:54:04 028363 codeine medicatio n Not available Not available Not available 04/13/2023 2670 RxNorm Afshan Kateryna null, [place] [facility] - [place] & [place] 3 10:54:16 960487 guaifenes in / phenyleph rine medicatio n Not available Not available Not available 04/13/2023 31483 7 RxNorm Afshan Kateryna null, [place] - [facility] - [place] & [place] 3 10:54:36 851718 Hycomine medicatio n Not available Not available Not available 04/13/2023 21390 4 RxNorm Afshan Kateryna null, [place] [facility] - [place] & [place] 3 10:55:27 650010 Product containin g penicilli n (product) medicatio n Not available Not available Not available 04/13/2023 57401 8001 SNOMED Afshan Kateryna null, [place] - [facility] - [place] & [place] 3 10:55:53 683996 Lovenox medicatio n Not available Not available Not available 04/13/2023 45475 6 RxNorm Afshan Kateryna null, [place] [facility] [place] & [place] 3 10:56:02 609973 Lipitor medicatio n Not available Not available Not available 04/13/2023 83508 5 RxNorm Afshan Kateryna null, [place] [facility] - [place] & [place] 3 10:56:14 026758 Robaxin medicatio n Not available Not available Not available 04/13/2023 91793 5 RxNorm Afshan Kateryna null, [place] - [facility] - [place] & [place] 3 10:56:30 076977 Talwin medicatio n Not available Not available Not available 04/13/2023 8002 RxNorm NILSON Roque [facility] & [place] 3 10:56:40 068911 tetracycl ine medicatio n Not available Not available Not available 04/13/2023 50115 RxNorm NILSON Roque [facility] & [place] 3 10:56:51 839303 Ultram medicatio n Not available Not available Not available 04/13/2023 53700 6 RxNorm NILSON Roque [facility] & [place] 3 10:56:57 Medications Name Sig Start Date Stop Date Status Note LastModified by Organization Details LastModified Time celecoxib 200 mg capsule active Not Available Not Available Not Available prednisone 10 mg tablet active Not Available Not Available Not Available BD Luer-Pedro Syringe 3 mL 25 x 5/8 active Not Available Not Available Not Available Lidocaine Viscous 2 % mucosal solution active Not Available Not Available Not Available nystatin 100,000 unit/gram topical ointment active Not Available Not Available Not Available acyclovir 400 mg tablet active Not Available Not Available Not Available sulfamethoxazole 800 mg-trimethoprim 160 mg tablet active Not Available Not Availabl e Not Available leflunomide 20 mg tablet active Not Available Not Available Not Available warfarin 4 mg tablet active Not Available Not Available Not Available dexamethasone 0.5 mg/5 mL oral elixir active Not Available Not Available Not Available pramipexole 0.5 mg tablet active Not Available Not Available Not Available meloxicam 7.5 mg tablet active Not Available Not Available Not Available amitriptyline 25 mg tablet active Not Available Not Available No t Available cyanocobalamin (vit B-12) 1,000 mcg/mL injection solution active Not Available Not Available Not Available clotrimazole-betam ethasone 1 %-0.05 % topical cream active Not Available Not Availa ble Not Available gabapentin 300 mg capsule active Not Available Not Available Not Available folic acid 1 mg tablet active Not Available Not Available Not Available pravastatin 20 mg tablet active Not Available Not Available Not Available mupirocin 2 % topical ointment active Not Available Not Avail able Not Available oxycodone-acetamin ophen 7.5 mg-325 mg tablet active Not Available Not Available No t Available SSD 1 % topical cream active Not Available Not Available Not Available metoprolol tartrate 25 mg tablet active Not Available Not Available Not Available duloxetine 60 mg capsule,delayed release active Not Available Not Available Not Available chlorhexidine gluconate 0.12 % mouthwash active Not Available Not Available No t Available diclofenac 1 % topical gel active Not Available Not Available Not Available Prolia 60 mg/mL subcutaneous syringe active Not Available Not Available Not Available Otezla 30 mg tablet active Not Available Not Available Not Available Vitals Date Recorded Body height Body temperature Body mass index (BMI) Body weight Oxygen saturation Oxygen saturation in Arterial blood by Pulse oximetry Heart rate Provider Name and Address Organization Details Last Updated DateTime 4 165.1 cm 97.5 [degF] 31.6 kg/m2 84414.5 5 g 98 % 98 % 68 /min Mary Saunders [facility] & [place] 4 08:41:40 Date Recorded Oxygen saturation Oxygen saturation in Arterial blood by Pulse oximetry Heart rate Body temperature Body height Provider Name and Address Organization Details Last Updated DateTime 3 99 % 99 % 66 /min 97.7 [degF] 165.1 cm Afshan Mastersonle [facility] & [place] 3 10:58:26 Social History Question Answer Notes LastModified by [employer] Details LastModified Time Tobacco Smoking Status Never Smoker [facility] [place] 04/13/2023 10:59:02 Has Tobacco Cessation Counseling Been Provided? No Information not available 04/13/2023 Sex: Unknown Functional Status Question Answer Note LastModified by [employer] Details LastModified Time Do you use any illicit or recreational drugs? No Information not available 04/13/2023 Do you or have you ever used any other forms of tobacco or nicotine? 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 Family History Relationship Description Onset Age of this Age Resolved Age Notes LastModified by Organization Details LastModified Time Mother Disorder of endocrine system pt. added direct ly (04/19) [email or web address] Not available 04/19/2023 14:04:27 Mother Myocardial infarction pt. added direct ly (04/19) [email or web address] Not available 04/19/2023 14:04:41 Mother Hypertensive disorder pt. added direct ly (04/19) [email or web address] Not available 04/19/2023 14:05:03 Mother Heart disease pt. added direct ly (04/19) [email or web address] Not available 04/19/2023 14:06:13 Mother Obesity pt. added direct ly (04/19) [email or web address] Not available 04/19/2023 14:06:41 Father Disorder of endocrine system pt. added direct ly (04/19) [email or web address] Not available 04/19/2023 14:04:27 Father Myocardial infarction pt. added direct ly (04/19) [email or web address] Not available 04/19/2023 14:04:41 Father Hypertensive disorder pt. added direct ly (04/19) [email or web address] Not available 04/19/2023 14:05:03 Father Hearing loss pt. added direct ly (04/19) [email or web address] Not available 04/19/2023 14:05:43 Father Heart disease pt. added direct ly (04/19) [email or web address] Not available 04/19/2023 14:06:13 Brother Disorder of endocrine system pt. added direct ly (04/19) [email or web address] Not available 04/19/2023 14:04:27 Brother Myocardial infarction pt. added direct ly (04/19) [email or web address] Not available 04/19/2023 14:04:41 Brother Hypertensive disorder pt. added direct ly (04/19) [email or web address] Not available 04/19/2023 14:05:03 Brother Obesity pt. added direct ly (04/19) [email or web address] Not available 04/19/2023 14:06:41 Brother Kidney disease pt. added direct ly (04/19) [email or web address] Not available 04/19/2023 14:07:09 Son Headache pt. added direct ly (04/19) [email or web address] Not available 04/19/2023 14:06:24 Medical History No medical history recorded. Gynecological HistoryNo gynecological history recorded. Obstetrics History GPAL:G 0 P 0 0 0 0 Past Encounters Encounter ID Performer Location Encounter Start Date Encounter Closed Date Diagnosis/Indication Diagnosis SNOMED-CT Code Diagnosis ICD10 Code Diagnosis Note [id number] Mark Kim MD [facility] Infectiou s Disease [address] [facility] [place] [place] [address] 04/13/2023 10:21:59 04/13/2023 11:33:52 Local infection of wound 01543902 T14.90XA Acute skin and soft tissue infection occurring in a left lower abdominal wound. This is complicate d by her multiple antibiotic intoleranc es as well as her morbid obesity. This is likely a polymicrob ial infection. I do not know the exact infecting pathogens. I obtained samples today for aerobic and anaerobic culture. I am going to check basic laboratory work as below. I am going to start omadayclin e. I will administer loading doses for the 1st 2 days followed by a maintenanc e dose for another 5 days. I will re-evaluat e her again in 1 week. I would recommend a wound care referral. Obesity 515114356 E66.9 This complicate s all aspects of her care and the potential for wound healing. [id number] Mark Kim MD [facility] Infectiou s Disease [address] [facility] [place] [place] [address] 05/03/2023 08:34:06 05/03/2023 09:05:46 Local infection of wound 20033429 T14.90XA This was polymicrob ial in nature and related to E coli and anaerobic bacteria. She completed a week course omadacycli ne. On exam, there is no persisting infection evident. No additional antibiotic s needed. She will continue to follow up with wound care. She will follow up with me in the event that she gets a recurrent infection. I think it is fine from an infection standpoint for her to proceed with the Orthopedic surgery she needs for her foot.. Infection caused by Escherichia coli 71379481 B96.20 as above Health Concerns Section Related Observation LastModified by Organization Detai ls LastModified Time None Recorded Concern Status LastModified by Organization Details LastModified Time None Recorded Advance Directives Directive None Recorded Payers Insurance Date Sequence Insurance Name Policy Number Policy Christianson Covered Member ID Christianson Member ID Guarantor Name 11/11/2023 1 [place]: [place] - [employer] [id number] Zaina Estrada [id number] Zaina Segunmax Notes Date Note Type Note Provider Name and Address Organization Details Recorded Time 04/13/2023 text/html This is a 62-year-old white female referred to [facility] for an infected left abdominal wound. Apparently, the wound has been there for at least 3 months. The patient is unsure how it developed. She is noted some worsening drainage and foul smell over the last few days. The wound is painful. It is located over her left lower abdominal pannus. She is not had any associated fever. No malaise. Apparently, she was on a brief course of Bactrim that did not help much. She denies any exacerbating factors. Mark Kim MD [address] [place], [address] 04/13/2023 11:26:34 05/03/2023 text/html This is a 62-year-old white female following up with wi for an infected wound over the anterior abdominal wall.. She was treated with 7 days omadaycline. Her culture revealed E coli and anaerobic bacteria. She is here for follow-up. She states her wound feels better. She is had no persistent drainage. No redness. No pain. No fever. She tolerated the omadacycline well. Mark Kim MD [address], [place], [address], [facility] 05/03/2023 09:08:13 OBGyn Episode No OBEpisode recorded.
== END 2024-09-19 23:59 | disposition home or self-care (01) ==
LOC: RT 12:43
PROVIDERS: PCP Nurse Practitioner; Visit Provider Nurse Practitioner
DX: S70.10XA Contusion of unspecified thigh, initial encounter (principal); R60.9 Edema, unspecified
CPT/HCPCS: 93971

== ENCOUNTER 2024-11-08 10:46 | Outpatient (RCR) | payer BC, SELFPAY | END 2024-11-08 23:59 | disposition home or self-care (01) | LOC: PT 10:46 | PROVIDERS: PCP Nurse Practitioner; Visit Provider Nurse Practitioner | DX: T79.8XXA Other early complications of trauma, initial encounter (principal) | CPT/HCPCS: 97163 ==

== ENCOUNTER 2024-12-04 15:00 | Outpatient (RCR) | payer BC, SELFPAY | END 2024-12-04 23:59 | disposition home or self-care (01) | LOC: PT 15:00 | PROVIDERS: PCP Nurse Practitioner; Visit Provider Nurse Practitioner | DX: T79.8XXA Other early complications of trauma, initial encounter (principal) | CPT/HCPCS: 97597 ==